=== PATIENT | male | born 1990 | race Two or more races ===

== ENCOUNTER 2018-01-03 16:24 | Emergency (ER) | payer MEDICAID ==
[~2018-01-03] VITALS: Ht 180.3 cm; Wt 104.3 kg
[2018-01-03] MEDS ORDERED: LORAZEPAM1 MG ORAL (16:33)
[2018-01-03] MEDS: LORazepam 1mg tab ORAL ONE ×2 (16:51→17:07)
[2018-01-03 16:52] VITALS: BP 138/98
--- NOTE | 2018-01-03 17:00 | Emergency Room Report ---
History of Present Illness General Chief Complaint: Chest Pain Source: Patient Present Illness HPI 27-year-old male presents to the emergency department complaining of intermittent chest pain with numbness in the bilateral hands and episodes of hyperventilation times one month. Patient states that he's been evaluated multiple times and has been diagnosed with anxiety. Patient states every tenderness to the ER they do blood work and EKG and always in the discharging him with diagnosis of inside E. Patient states that he recently had change in insurance so he just got assigned a primary care doctor and does not have a psychiatric appointment until the of this month. Patient states that he is prescribed lorazepam he states that he had to take 2 today. To stop his symptoms. Patient states he also takes Vistaril on occasion as well. Patient states he only has 7 left of his Ativan. Patient reports that during an episode he gets very shaky and starts breathing very fast despite his efforts to control his breathing. Denies recent trauma denies drug use denies denies familial history of thyroid disorder or cardiac problems. He denies cardiac problems himself. Denies fevers or chills. He denies pain at this time and states that his symptoms have now resolved after taking 2 of his Ativan pills. He states that he is concerned because his have been going on for a month without improvement. he is also worried that he is going to run out of his Ativan. Denies LOC, AMS, dizziness, Changes in Vision, Sensation, paresthesias, or a sudden severe headache. Allergies: Coded Allergies: No Known Allergies (Unverified , 01/03/18) Patient History Past Medical History: see triage record, psych hx - anxiety Past Surgical History: none Pertinent Family History: none Immunizations: UTD Reviewed Nursing Documentation: PMH: Agreed; PSxH: Agreed Nursing Documentation-PMH Past Medical History: No History, Except For Review of Systems All Other Systems: negative except mentioned in HPI Physical Exam Vital Signs Date Time Temp Pulse Resp B/P (MAP) Pulse Ox O2 Delivery O2 Flow Rate FiO2 01/03/18 16:28 98.3 97 23 138/98 94 Room Air 98.2 Sp02 EP Interpretation: reviewed, normal General Appearance: no apparent distress, alert, GCS 15, non-toxic Head: normocephalic, atraumatic Eyes: bilateral eye normal inspection, bilateral eye PERRL ENT: hearing grossly normal, normal voice Neck: full range of motion, thyroid normal Respiratory: chest non-tender, lungs clear, normal breath sounds, no rhonchi, no respiratory distress, no accessory muscle use, no wheezing, speaking full sentences Cardiovascular #1: regular rate, rhythm, no edema, normal capillary refill Cardiovascular #2: 2+ radial (R), 2+ radial (L) Gastrointestinal: non tender, soft Musculoskeletal: back normal, gait/station normal, normal range of motion, non- tender Neurologic: alert, oriented x3, responsive, motor strength/tone normal, sensory intact, normal gait, speech normal, grossly normal Psychiatric: judgement/insight normal Skin: normal color, no rash, warm/dry, well hydrated Medical Decision Making PA Attestation Dr. da silva is my supervising Physician whom patient management has been discussed with. Diagnostic Impression: Primary Impression: Anxious reaction ER Course 27-year-old male presents to the emergency department complaining of intermittent chest pain with numbness in the bilateral hands and episodes of hyperventilation times one month. Patient states that he's been evaluated multiple times and has been diagnosed with anxiety. Patient states every tenderness to the ER they do blood work and EKG and always in the discharging him with diagnosis of inside E. Patient states that he recently had change in insurance so he just got assigned a primary care doctor and does not have a psychiatric appointment until the of this month. Patient states that he is prescribed lorazepam he states that he had to take 2 today. To stop his symptoms. Patient states he also takes Vistaril on occasion as well. Patient states he only has 7 left of his Ativan. Patient reports that during an episode he gets very shaky and starts breathing very fast despite his efforts to control his breathing. Denies recent trauma denies drug use denies denies familial history of thyroid disorder or cardiac problems. He denies cardiac problems himself. Denies fevers or chills. He denies pain at this time and states that his symptoms have now resolved after taking 2 of his Ativan pills. He states that he is concerned because his have been going on for a month without improvement. he is also worried that he is going to run out of his Ativan. Denies LOC, AMS, dizziness, Changes in Vision, Sensation, paresthesias, or a sudden severe headache. Ddx considered but are not limited to anxiety, [place], PE, asthma, thyroid storm, hyperthyroid, EPS ---6 month retrospective review of [employer] : Multiple prescriptions for Ativan over the course of the last 3 months that are of small quantity and are prescribed by various different doctors. Vital signs: are WNL, pt. is afebrile H&PE are most consistent with anxiety attack ORDERS: EKG NSR:79 BPM no acute changes ED INTERVENTIONS: -none at this time. pt. is asymptomatic. Discussed with this patient that he needs to follow-up with [facility] urgent care if he feels that he is not going to be seen by his doctor soon enough. I also discussed with this patient that it is not safe to be prescribe controlled substances by different providers and continuously visit the ER he needs to stop was himself with a primary care provider who can safely prescribe these medications and monitor his improvement. I also discussed with this patient that he could be having symptoms of his thyroid and I encouraged him to bring this up with his primary care doctor at his first appointment. DISCHARGE: At this time pt. is stable for d/c to home. Will provide printed patient care instructions, and any necessary prescriptions. Care plan and follow up instructions have been discussed with the patient prior to discharge. EKG Diagnostic Results EP Interpretation: Dr. Tucker Rate: normal - 79 Rhythm: NSR ST Segments: no acute changes ASA given to the pt in ED: No PA Scribe Text This Interpretation was scribed by YOHANNES Villegas. Last Vital Signs Date Time Temp Pulse Resp B/P (MAP) Pulse Ox O2 Delivery O2 Flow Rate FiO2 01/03/18 16:28 98.3 97 23 138/98 94 Room Air 98.2 Disposition: HOME, SELF-CARE Condition: Stable Scripts Buspirone Hcl* (BUSPAR*) 10 Mg Tablet 10 MG ORAL THREE TIMES A DAY, #9 TAB 0 Refills Prov: Beulah Villegas 01/03/18 Patient Instructions: Generalized Anxiety Disorder, Thyroid-Stimulating Hormone Test Additional Instructions: Patient is to follow-up directly after ED discharge at [facility] urgent care Take previously prescribed medications as directed. Follow up with a Primary Care Provider in 3-5 days, even if your symptoms have resolved. --Please review list of primary care clinics, if you do not already have a primary care provider Return sooner to ED if new symptoms occur, or current symptoms become worse. Do not drink alcohol, drive, or operate heavy machinery while taking Buspar as this may cause drowsiness. - Please note that this Emergency Department Report was dictated using [employer] technology software, occasionally this can lead to erroneous entry secondary to interpretation by the dictation equipment. Beulah Villegas January 03, 2018 17:00
[2018-01-03] MEDS ORDERED: BUSPAR10 MG ORAL (17:55)
[2018-01-03 18:01] VITALS: BP 138/98
--- NOTE | 2018-01-04 18:52 | Cardiology Report ---
APPROVED REPORT EKG Measurement Heart [id number] Normal sinus rhythm Inferior infarct, age undetermined Abnormal ECG
== END 2018-01-03 18:01 | disposition home or self-care (01) ==
LOC: EMR 17:01
DX: F41.1 Generalized anxiety disorder (principal); R07.9 Chest pain, unspecified; R20.0 Anesthesia of skin
CPT/HCPCS: 93005; 99283

== ENCOUNTER 2018-01-06 20:30 | Emergency (ER) | payer MEDICAID ==
[~2018-01-06] VITALS: Ht 180.3 cm; Wt 104.3 kg
[~2018-01-06 20:30] MED LIST: BUSPAR10 MG ORAL; LORAZEPAM1 MG ORAL
[2018-01-06 20:47] VITALS: BP 134/89
[2018-01-06] MEDS ORDERED: LORazepam 0.5mg tab ORAL ONE (21:00)
[2018-01-06 21:13] VITALS: BP 142/99
--- NOTE | 2018-01-06 21:51 | Emergency Room Report ---
History of Present Illness General Chief Complaint: Chest Pain Source: Patient Present Illness HPI 27-year-old male with a history of anxiety Recently started on Paxil and Atarax 4 days ago Reports he stopped taking Ativan which she's been taking largely for the past year About 4 days ago, now has symptoms Consistent with a panic attack that he self-reports as a panic attack He reports left-sided nonradiating pressure type pain Moderate and intermittent, sometimes with shortness of breath, currently not short of breath Denies leg pain, leg swelling, syncope, hemoptysis, recent travel, surgeries, slurred speech, weakness, fever, blurred vision Does report a sensation of restlessness, and reports his symptoms keep recurring He has been seen in multiple emergency departments, has had chest x-rays and lab work, and was recently started on the Paxil and Atarax for severe anxiety by his primary care doctor, and has also been referred to a psychiatrist Allergies: Coded Allergies: No Known Allergies (Unverified , 01/03/18) Patient History Past Medical History: see triage record Reviewed Nursing Documentation: PMH: Agreed; PSxH: Agreed Review of Systems All Other Systems: negative except mentioned in HPI Physical Exam Vital Signs Date Time Temp Pulse Resp B/P (MAP) Pulse Ox O2 Delivery O2 Flow Rate FiO2 01/06/18 20:32 98.2 116 18 134/89 98 Room Air 98.2 Sp02 EP Interpretation: reviewed, normal General Appearance: no apparent distress, alert, non-toxic Head: normocephalic Eyes: bilateral eye normal inspection, bilateral eye PERRL, bilateral eye EOMI ENT: normal ENT inspection, hearing grossly normal, normal pharynx, no angioedema, normal voice, moist mucus membranes Neck: normal inspection, full range of motion, supple, supple/symm/no masses Respiratory: chest non-tender, lungs clear, normal breath sounds, chest symmetrical, palpation of chest normal Cardiovascular #1: normal peripheral pulses, regular rate, rhythm Cardiovascular #2: 2+ radial (R), 2+ radial (L), 2+ dorsalis pedis (R), 2+ dorsalis pedis (L) Gastrointestinal: normal inspection, non tender, soft, no mass, no guarding, no rebound Rectal: deferred Genitourinary: normal inspection, no CVA tenderness Musculoskeletal: back normal, gait/station normal, normal range of motion, non- tender, no calf tenderness, Jorge's Sign negative Neurologic: alert, responsive, mental health nurse practitioner III-XII nml as tested, motor strength/tone normal, sensory intact, speech normal Psychiatric: judgement/insight normal, memory normal, mood/affect normal, no suicidal/homicidal ideation Skin: normal color, no rash, warm/dry, normal turgor Lymphatic: no adenopathy Medical Decision Making Diagnostic Impression: Primary Impression: Anxiety ER Course Patient with unremarkable evaluation, does have a single Q wave in lead 3, but do not suspect anything serious He has had normal chest x-rays, multiple evaluations in the past symptoms are extremely consistent with anxiety, I do not suspect aortic dissection or PE nor ACS His heart rate came down without any interventions, he may be having slight withdrawal symptoms from not having Ativan for 4 days, but I do not suspect he will go into severe withdrawal state He understands and actually refused Ativan, and will continue his Paxil, Atarax and follow-up with his primary doctor EKG Diagnostic Results EKG Time: 21:21 EP Interpretation: no st-t changes, no twi Rate: normal Rhythm: NSR ST Segments: no acute changes ASA given to the pt in ED: No Rhythm Strip Diag. Results Rhythm Strip Time: 20:44 Rate: 77 Rhythm: NSR Reevaluation Time: 21:49 Last Vital Signs Date Time Temp Pulse Resp B/P (MAP) Pulse Ox O2 Delivery O2 Flow Rate FiO2 01/06/18 21:13 98.0 87 17 142/99 98 Room Air 98.0 Status: improved Condition: Stable JENNA GUTIERREZ M.D January 06, 2018 21:51
[2018-01-06 22:07] VITALS: BP 140/90
[2018-01-06 22:09] VITALS: BP 140/90
--- NOTE | 2018-01-08 12:44 | Cardiology Report ---
APPROVED REPORT EKG Measurement Heart [id number] [id number] Normal sinus rhythm Inferior infarct, age undetermined Abnormal ECG
== END 2018-01-06 22:09 | disposition home or self-care (01) ==
LOC: EMR 21:04
DX: F41.9 Anxiety disorder, unspecified (principal); R07.89 Other chest pain
CPT/HCPCS: 93005; 99283

== ENCOUNTER 2018-01-07 11:14 | Emergency (ER) | payer MEDICAID ==
[~2018-01-07] VITALS: Ht 180.3 cm; Wt 104.3 kg
--- NOTE | 2018-01-07 12:13 | Emergency Room Report ---
History of Present Illness General Chief Complaint: General Complaint Source: Patient Present Illness HPI 27-year-old male patient presents ER complaining of anxiousness. Patient was previously seen in this ER multiple times including yesterday. Patient reports symptoms have worsened since that time. complains of headache. Denies vomiting or vision changes. Denies vertigo. He denies suicidal or homicidal ideations. Reports "voices" as, states he feels very anxious and is not able to relax. Denies drinking alcohol, smoking or drugs. denies fever, chest pain, shortness of breath. reports was previously seen by accident this a few days ago and is currently being treated with Paxil and hydroxyzine, does not believe medications working at this time. denies history of injury. Allergies: Coded Allergies: No Known Allergies (Unverified , 01/03/18) Patient History Past Medical History: see triage record Reviewed Nursing Documentation: PMH: Agreed; PSxH: Agreed Nursing Documentation-PMH Past Medical History: No History, Except For History Of Psychiatric Problem: Yes - Anxiety Review of Systems All Other Systems: negative except mentioned in HPI Physical Exam Vital Signs Date Time Temp Pulse Resp B/P (MAP) Pulse Ox O2 Delivery O2 Flow Rate FiO2 01/07/18 11:20 97.6 101 18 137/97 95 Room Air 97.5 Sp02 EP Interpretation: reviewed, normal General Appearance: well appearing, no apparent distress, alert, GCS 15, non- toxic Head: normocephalic, atraumatic, other Eyes: bilateral eye normal inspection, bilateral eye PERRL ENT: hearing grossly normal, normal pharynx, no angioedema, normal voice, uvula midline, moist mucus membranes Neck: full range of motion Respiratory: lungs clear, normal breath sounds, no rhonchi, no respiratory distress, no accessory muscle use, no wheezing, speaking full sentences Cardiovascular #1: regular rate, rhythm, no edema Gastrointestinal: non tender, soft, no mass, non-distended, no guarding, no rebound Musculoskeletal: back normal, digits/nails normal, gait/station normal, normal range of motion, non-tender Neurologic: alert, oriented x3, responsive, learning program manager III-XII nml as tested, motor strength/tone normal, sensory intact, cerebellar normal, normal gait, speech normal Psychiatric: anxious Skin: no rash Medical Decision Making PA Attestation Abhinav Kline PA-C Diagnostic Impression: Primary Impression: Anxiety Additional Impression: Headache ER Course Pt. presents to the ED c/o HICKMAN and anxiety. Ddx considered but are not limited to anxiety, depression, drug use, alcohol use , behavioral disorder. patient was seen here yesterday, do not believe patient need needs labs. Due to new-onset headache, will order imaging to rule out underlying pathology.. Vital signs: are WNL, pt. is afebrile Ordered pain medication, Ativan and imaging. ER COURSE: CT head negative for acute disease, discussed results with the patient, headache likely related to anxiety. Inform patient needs mental health evaluation and outpatient follow-up. Patient is not having on-site psychiatric services here, follow-up with primary care provider, psychiatrist, or psychiatric facility. patient reports understanding and okay for discharge, will follow up outpatient with psychiatric services. Follow-up with primary care provider to discuss mental health referral if needed. Follow up with the primary care provider for further treatment and management. Inform patient that symptoms likely related to anxiety, continue taking medication. Taking Tylenol for headache symptoms, take recommended dose. Does not need Rx at this time. I do not believe the patient is a danger to himself or others at this time, denies suicidal or homicidal ideation. Patient okay for discharge home. Patient is being seen in ER with his , father and child, has good support system with him, okay for outpatient follow-up and discharge. DISCHARGE: At this time pt is stable for d/c to home. Patient is resting comfortably, in no acute distress, nontoxic appearing, talking without difficulty. Patient to take medications as instructed Will provide with patient care instructions and any necessary prescriptions. Care plan and follow-up instructions provided. Patient instructed to follow-up with primary care provider in 3 - 5 days. Patient questions asked and answered. Patient reports understanding and agreement to treatment plan. ER precautions given. Patient instructed to return to ER immediately for any new or worsening of symptoms including but not limited to increasing SOB, persistent fever. - Please note that this Emergency Department Report was dictated using [employer] ball machine mechanic technology software, occasionally this can lead to erroneous entry secondary to interpretation by the dictation equipment. CT/MRI/US Diagnostic Results CT/MRI/US Diagnostic Results : Imaging Test Ordered: CT head Impression Normal CT scan of the head without contrast material. Minimal sinus disease incidentally noted Last Vital Signs Date Time Temp Pulse Resp B/P (MAP) Pulse Ox O2 Delivery O2 Flow Rate FiO2 01/07/18 11:20 97.6 101 18 137/97 95 Room Air 97.5 Disposition: HOME, SELF-CARE Condition: Stable Patient Instructions: General Headache Without Cause, [id number], Generalized Anxiety Disorder Additional Instructions: Followup with primary care provider in 1-2 days, discuss referral to psychiatry. Followup with mental health professional for further diagnosis and treatment. Take Tylenol OTC for pain and headache symptoms. Patient questions asked and answered. ER precautions given, patient instructed to return to ER immediately for any new or worsening of symptoms. Houston Kline January 07, 2018 12:13
[2018-01-07] MEDS ORDERED: Acetaminophen 500mg (ES) tab ORAL ONE (12:15)
[2018-01-07] MEDS ORDERED: LORazepam 1mg tab ORAL ONE (12:15)
--- NOTE | 2018-01-07 12:54 | Diagnostic Imaging Report ---
Indication: Reason For Exam: H/A Technique: Continuous helical CT scanning of the head was performed without intravenous contrast material. Axial and coronal 5 mm sections were generated. Radiation dose was minimized using automated exposure control Dose: Total Dose Length Product - DLP 1445.[address] Dose Index - CTDIvol(s) 70.38 mGy. Comparison: none Findings: The ventricular system is normal in size and configuration. There is no shift of midline structures. No abnormal extra-axial fluid collections are noted. There is no evidence of intracerebral bleeding. No other abnormal high or low density areas are noted within the brain. There is minimal ethmoid sinus mucosal thickening. The mastoids are clear. The calvarium is intact. The dacosta-white differentiation is normal. The orbits are unremarkable Impression: Normal CT scan of the head without contrast material. Minimal sinus disease incidentally noted The CT scanner at [facility] is accredited by the [employer] and the scans are performed using protocols designed to limit radiation exposure to as low as reasonably achievable to attain images of sufficient resolution adequate for diagnostic evaluation.
[2018-01-07] MEDS ORDERED: Lidocaine 1% 10mg/ml/EPI 0.01mg/ml 50ml INJ ONE (13:43)
[2018-01-07] MEDS ORDERED: Lidocaine 1% Plain 30 ml INJ ONE (13:44)
[2018-01-07 14:08] VITALS: BP 137/97
== END 2018-01-07 13:45 | disposition home or self-care (01) ==
LOC: EMR 13:34
DX: F41.9 Anxiety disorder, unspecified (principal); R51 Headache
CPT/HCPCS: 70450; 99284; J2001

== ENCOUNTER 2018-04-11 20:49 | Emergency (ER) | payer MEDICAID, OTHER ==
[~2018-04-11] VITALS: Ht 180.3 cm; Wt 108.9 kg
[2018-04-11] MEDS ORDERED: PAXIL40 MG ORAL (21:01)
[2018-04-11] MEDS ORDERED: PROTONIX40 MG ORAL (21:06)
--- NOTE | 2018-04-11 21:07 | Emergency Room Report ---
History of Present Illness General Chief Complaint: Headache Source: Patient, Medical Record Present Illness HPI Is a 27-year-old male with a history of anxiety for which she takes Paxil. He also has several prescription for Ativan in the past. Most recently last month. He presents with chief complaint of chest pain with burning sensation mid chest area. His throat. His been ongoing for 4 days. Was taking Protonix but ran out. No fever chills but no nausea no vomiting. No diaphoresis. No exertional component. Denies any other complaint. No diaphoresis. Allergies: Coded Allergies: No Known Allergies (Unverified , 01/03/18) Patient History Past Medical History: see triage record, old chart reviewed Past Surgical History: none Pertinent Family History: none Social History: Denies: smoking Immunizations: other Reviewed Nursing Documentation: PMH: Agreed; PSxH: Agreed Nursing Documentation-PMH History Of Psychiatric Problem: Yes - ANXIETY Review of Systems Eye: Denies: eye pain, blurred vision ENT: Denies: ear pain, nose congestion, throat swelling Respiratory: Denies: cough, shortness of breath Cardiovascular: Reports: chest pain; Denies: palpitations Gastrointestinal: Reports: abdominal pain; Denies: diarrhea, nausea, vomiting Musculoskeletal: Denies: back pain, joint pain Skin: Denies: rash Neurological: Denies: headache, numbness Endocrine: Denies: increased thirst, increased urine Hematologic/Lymphatic: Denies: easy bruising All Other Systems: negative except mentioned in HPI Physical Exam Vital Signs Date Time Temp Pulse Resp B/P (MAP) Pulse Ox O2 Delivery O2 Flow Rate FiO2 04/11/18 20:54 98.1 77 18 126/87 96 Room Air 98.1 vitals normal Sp02 EP Interpretation: reviewed, normal General Appearance: well appearing, no apparent distress, alert Head: normocephalic, atraumatic Eyes: bilateral eye PERRL, bilateral eye EOMI ENT: hearing grossly normal, normal pharynx Neck: full range of motion, supple, no meningismus Respiratory: chest non-tender, lungs clear, normal breath sounds Cardiovascular #1: regular rate, rhythm, no murmur Gastrointestinal: normal bowel sounds, non tender, no mass, no organomegaly, no bruit, non-distended Musculoskeletal: back normal, gait/station normal, normal range of motion Psychiatric: mood/affect normal Skin: warm/dry Medical Decision Making Diagnostic Impression: Primary Impression: Atypical chest pain ER Course Patient with atypical chest pain. Most likely reflux in nature. EKG normal. No evidence of ACS, PE, dissection to name a few. We'll discharge home with prescription for Protonix. EKG Diagnostic Results Rate: normal Rhythm: NSR ST Segments: no acute changes ASA given to the pt in ED: No Rhythm Strip Diag. Results Rhythm Strip Time: 21:06 EP Interpretation: yes Rate: 80 Rhythm: NSR, no PVC's, no ectopy Last Vital Signs Date Time Temp Pulse Resp B/P (MAP) Pulse Ox O2 Delivery O2 Flow Rate FiO2 04/11/18 20:54 98.1 77 18 126/87 96 Room Air 98.1 Status: unchanged Disposition: HOME, SELF-CARE Condition: Stable Scripts Pantoprazole* (PROTONIX*) 40 Mg Tablet. 40 MG ORAL DAILY, #30 TAB Prov: NARDA CHOWDARY M.D. 04/11/18 Additional Instructions: Continue with your Paxil. Follow-up with your doctor in a week for recheck. Return if symptom worsen. NARDA CHOWDARY M.D. Apr 11, 2018 21:07
[2018-04-11 21:12] VITALS: BP 124/80
[2018-04-11 21:16] VITALS: BP 122/76
[2018-04-11 21:17] VITALS: BP 124/80
--- NOTE | 2018-04-19 18:48 | Cardiology Report ---
APPROVED REPORT EKG Measurement Heart [id number] 130P15 [id number] Normal sinus rhythm Cannot rule out Inferior infarct, age undetermined Abnormal ECG
== END 2018-04-11 21:17 | disposition home or self-care (01) ==
LOC: EMR 21:00
DX: R07.89 Other chest pain (principal); F41.9 Anxiety disorder, unspecified
CPT/HCPCS: 93005; 99283

== ENCOUNTER 2018-06-20 12:55 | Emergency (ER) | payer OTHER ==
[~2018-06-20] VITALS: Ht 180.3 cm; Wt 113.4 kg
[~2018-06-20 12:55] MED LIST changes: +PAXIL40 MG ORAL; +PROTONIX40 MG ORAL
--- NOTE | 2018-06-20 13:17 | Emergency Room Report ---
History of Present Illness General Chief Complaint: Nausea Source: Patient Present Illness HPI patient is a 27-year-old male with history of anxiety currently controlled with Paxil daily, here complaining of 3 days of continuous epigastric pain and multiple bouts of nonbloody vomit. Denies diarrhea, constipation, complains of chills but no fever. Patient has been able to take fluids with no problem unable to ingest solid food. Patient also complains of acid reflux after eating and burning sensation postprandial in her epigastric region. Denies recent travel or antibiotic use. Denies chest pain, SOB, dizziness, headache, and all other associated symptoms. Patient went to starting to smoke cannabis in the past 2 weeks. Patient has been smoking cannabis on daily basis no alcohol ingestion no other recreational drugs Allergies: Coded Allergies: No Known Allergies (Unverified , 01/03/18) Patient History Past Medical History: see triage record Past Surgical History: none Reviewed Nursing Documentation: PMH: Agreed; PSxH: Agreed Nursing Documentation-PMH Past Medical History: No History, Except For History Of Psychiatric Problem: Yes Review of Systems All Other Systems: negative except mentioned in HPI Physical Exam Vital Signs Date Time Temp Pulse Resp B/P (MAP) Pulse Ox O2 Delivery O2 Flow Rate FiO2 06/20/18 13:00 97.9 75 20 149/101 97 Room Air Sp02 EP Interpretation: reviewed, normal General Appearance: normal inspection, well appearing, no apparent distress, alert, GCS 15, obese Head: normocephalic Eyes: bilateral eye normal inspection, bilateral eye PERRL ENT: normal ENT inspection, hearing grossly normal, normal pharynx Neck: normal inspection, full range of motion, supple, thyroid normal Respiratory: normal inspection, chest non-tender, lungs clear, no rhonchi, no wheezing Cardiovascular #1: normal inspection, regular rate, rhythm, no edema, no gallop , no murmur Gastrointestinal: normal inspection, soft, no mass, tenderness - epigastric, other - Negative Batres's, McBurney's Rectal: deferred Genitourinary: deferred Musculoskeletal: normal inspection, back normal Neurologic: normal inspection, alert, primer boxer III-XII nml as tested Psychiatric: normal inspection, judgement/insight normal, memory normal, no suicidal/homicidal ideation Skin: normal inspection, normal color, no rash, warm/dry, palpation normal, well hydrated, normal turgor Lymphatic: normal inspection, no adenopathy Medical Decision Making PA Attestation on the diagnosis and treatment plans were reviewed and discussed with my supervising physician Dr. Garcia Diagnostic Impression: Primary Impression: Acute gastroenteritis Additional Impression: GERD (gastroesophageal reflux disease) ER Course patient is a 27-year-old male with history of anxiety currently controlled with Paxil daily, here complaining of 3 days of continuous epigastric pain and multiple bouts of nonbloody vomit. Denies diarrhea, constipation, complains of chills but no fever. Patient has been able to take fluids with no problem unable to ingest solid food. Patient also complains of acid reflux after eating and burning sensation postprandial in her epigastric region. Denies recent travel or antibiotic use. Denies chest pain, SOB, dizziness, headache, and all other associated symptoms. Patient went to starting to smoke cannabis in the past 2 weeks. Patient has been smoking cannabis on daily basis no alcohol ingestion no other recreational drugs Ddx considered but are not limited to Viral gastroenteritis, Hpylori infection, GERD Vital signs: are WNL, pt. is afebrile H&PE are most consistent with viral gastroenteritis and GERD ORDERS: Zofran 4 mg ODT, omeprazole 20 mg, Motrin 600 ED INTERVENTIONS: None required at this time. DISCHARGE: At this time pt. is stable for d/c to home. Will provide printed patient care instructions, and any necessary prescriptions. Care plan and follow up instructions have been discussed with the patient prior to discharge. patient is advised on BRAT diet and increase intake of electrolyte water also follow up with primary care physician for possible H. pylori testing patient to follow-up with his primary care physician regarding his anxiety is blood pressure is elevated secondary to his anxiety no other associated symptoms limited to hypertension Last Vital Signs Date Time Temp Pulse Resp B/P (MAP) Pulse Ox O2 Delivery O2 Flow Rate FiO2 06/20/18 13:00 97.9 75 20 149/101 97 Room Air Disposition: HOME, SELF-CARE Condition: Stable Scripts Ibuprofen* (MOTRIN*) 600 Mg Tablet 600 MG ORAL BID, #30 TAB 0 Refills Prov: Preston Moody 06/20/18 Omeprazole (OMEPRAZOLE) 20 Mg Capsule. 20 MG ORAL BID, #30 CAP Prov: Preston Moody 06/20/18 Ondansetron Odt* (ZOFRAN ODT*) 8 Mg Tab.rapdis 4 MG ORAL Q8HR PRN for Nausea & Vomiting for 10 Days, #30 TAB Prov: Preston Moody 06/20/18 Patient Instructions: Nausea and Vomiting, Adult, Viral Gastroenteritis, Adult , [id number] Preston Moody Jun 20, 2018 13:17
[2018-06-20] MEDS ORDERED: ZOFRAN ODT8 MG ORAL (13:18)
[2018-06-20] MEDS ORDERED: OMEPRAZOLE20 M2 ORAL (13:19)
[2018-06-20] MEDS ORDERED: IBUPROFEN600 MG ORAL (13:19)
[2018-06-20 13:21] VITALS: BP 143/99
[2018-06-20 13:25] VITALS: BP 143/99
== END 2018-06-20 13:25 | disposition home or self-care (01) ==
LOC: EMR 13:25
DX: K52.9 Noninfective gastroenteritis and colitis, unspecified (principal); K21.9 Gastro-esophageal reflux disease without esophagitis; F41.9 Anxiety disorder, unspecified
CPT/HCPCS: 99283

== ENCOUNTER 2018-06-23 09:46 | Emergency (ER) | payer OTHER ==
[~2018-06-23] VITALS: Ht 180.3 cm; Wt 137.4 kg
[~2018-06-23 09:46] MED LIST changes: +IBUPROFEN600 MG ORAL; +OMEPRAZOLE20 M2 ORAL; +ZOFRAN ODT8 MG ORAL
[2018-06-23 09:52] VITALS: BP 155/110
[2018-06-23] MEDS ORDERED: Naproxen 375mg tab ORAL STA (10:16)
--- NOTE | 2018-06-23 10:34 | Emergency Room Report ---
History of Present Illness General Chief Complaint: Headache Source: EMS Present Illness HPI 27M with history of anxiety, c/o constant frontal headache. He was here recently for anxiety and is seeing a psychiatrist and antidepressants. In terms of headache: gradual, constant, frontal. No posterior pain, not sudden, not "worst elizalde of life", no trauma, no fever, no ALOC, no n/v. Allergies: Coded Allergies: PROCHLORPERAZINE (Unverified Allergy, Unknown, 06/23/18) Nursing Documentation-[facility] Past Medical History: No History, Except For History Of Psychiatric Problem: No - anxiety Review of Systems Constitutional: Reports: no symptoms Eye: Reports: no symptoms ENT: Reports: no symptoms Respiratory: Reports: no symptoms Cardiovascular: Reports: no symptoms Gastrointestinal: Reports: no symptoms Genitourinary: Reports: no symptoms Musculoskeletal: Reports: no symptoms Skin: Reports: no symptoms Psychiatric: Reports: anxiety, depressed feelings Neurological: Reports: headache Endocrine: Reports: no symptoms Hematologic/Lymphatic: Reports: no symptoms Allergic: Reports: no symptoms All Other Systems: negative except mentioned in HPI Physical Exam Vital Signs Date Time Temp Pulse Resp B/P (MAP) Pulse Ox O2 Delivery O2 Flow Rate FiO2 06/23/18 09:42 97.5 90 18 154/103 98 Room Air Sp02 EP Interpretation: reviewed, normal General Appearance: normal inspection, well appearing, no apparent distress, alert, GCS 15, non-toxic, obese Head: normocephalic, atraumatic Eyes: bilateral eye normal inspection, bilateral eye PERRL, bilateral eye EOMI ENT: normal ENT inspection, hearing grossly normal, normal pharynx, no angioedema, normal voice, moist mucus membranes Neck: normal inspection, full range of motion, supple, no meningismus, no bony tend Respiratory: normal inspection, lungs clear, normal breath sounds, no rhonchi, no respiratory distress, no retraction, no accessory muscle use, no wheezing Cardiovascular #1: normal inspection, regular rate, rhythm, no edema Gastrointestinal: normal inspection, normal bowel sounds, non tender, soft, no mass, non-distended Musculoskeletal: gait/station normal, normal range of motion Neurologic: normal inspection, alert, oriented x3, responsive, motor strength/ tone normal Psychiatric: normal inspection, judgement/insight normal, memory normal Suicide Risk Assessment: Suicidal Ideation: No Had intent to initiate attempt: No Pt's plan for suicide attempt: No Has means to complete attempt: No Skin: normal inspection, normal color, no rash, warm/dry Medical Decision Making Diagnostic Impression: Primary Impression: Headache Last Vital Signs Date Time Temp Pulse Resp B/P (MAP) Pulse Ox O2 Delivery O2 Flow Rate FiO2 06/23/18 09:52 97.5 18 155/110 98 Room Air 06/23/18 09:42 90 Disposition: HOME, SELF-CARE Referrals: NON PHYSICIAN (PCP) Patient Instructions: Tension Headache Rg Zimmer M.D. Jun 23, 2018 10:34
[2018-06-23 10:51] VITALS: BP 134/76
== END 2018-06-23 10:51 | disposition home or self-care (01) ==
LOC: EDBD 09:46 → EMR 10:13
DX: R51 Headache (principal); F41.9 Anxiety disorder, unspecified; Z88.8 Allergy status to other drugs, medicaments and biological substances
CPT/HCPCS: 99283

== ENCOUNTER 2018-12-05 09:47 | Emergency (ER) | payer OTHER ==
[~2018-12-05] VITALS: Ht 180.3 cm; Wt 104.3 kg
[2018-12-05] MEDS ORDERED: NORVASC5 MG ORAL (10:09)
[2018-12-05 10:21] VITALS: BP 142/98
--- NOTE | 2018-12-05 10:22 | NUR ---
ED Nurse Note: PT. AAOX4.AMBULATORY. CAME IN TO ER DUE TO CP ON THE MIDSTERNAL AREA RADIATING TO HIS NECK. PER PT. HAS BEEN DEALING WITH ENVIRONMENTAL STRESSORS SUCH HIS YOUNGER SISTER RUNNING AWAY
--- NOTE | 2018-12-05 10:31 | Emergency Room Report ---
History of Present Illness General Chief Complaint: General Complaint Source: Patient Present Illness HPI Patient is a 28-year-old male who presented after increased palpitations. He reports of increased anxiety as well as frequent racing heartbeats. Patient's apparently has had some recent stress with his family. He reports having recently had multiple episodes where he would wake up with palpitations. He denies any alcohol use. He had prior history of hypertension reports taking Norvasc. He denies any stimulant use. He denies any prior cardiac history. He denies any numbness or weakness to his extremities.Patient had intermittent episodes which lasted less than 1/2-hour. Allergies: Coded Allergies: PROCHLORPERAZINE (Unverified Allergy, Unknown, 06/23/18) Patient History Past Medical History: see triage record Reviewed Nursing Documentation: PMH: Agreed; PSxH: Agreed Nursing Documentation-PMH Past Medical History: No History, Except For Review of Systems All Other Systems: negative except mentioned in HPI Physical Exam Vital Signs Date Time Temp Pulse Resp B/P (MAP) Pulse Ox O2 Delivery O2 Flow Rate FiO2 12/05/18 10:03 98.6 95 20 138/89 98 Room Air Sp02 EP Interpretation: reviewed, normal General Appearance: normal inspection, well appearing, no apparent distress, alert, GCS 15, non-toxic Head: atraumatic ENT: normal ENT inspection, hearing grossly normal, normal voice Neck: normal inspection, full range of motion, supple, no bony tend Respiratory: normal inspection, lungs clear, normal breath sounds, no respiratory distress, no retraction, no wheezing Cardiovascular #1: regular rate, rhythm, no edema Gastrointestinal: normal inspection, normal bowel sounds, non tender, soft, no guarding, no hernia Genitourinary: no CVA tenderness Musculoskeletal: normal inspection, back normal, normal range of motion Neurologic: normal inspection, alert, oriented x3, responsive, chuck tender III-XII nml as tested, speech normal Psychiatric: normal inspection, judgement/insight normal, mood/affect normal Skin: normal inspection, normal color, no rash Medical Decision Making Diagnostic Impression: Primary Impression: Anxiety ER Course Patient presented for palpitations. Differential diagnosis include was not limited to arrhythmia, thyroid storm, sepsis, anemia, myocardial infarction, alcohol withdrawal, stimulant abuse, caffeine overdose among others. Because of complexity of patient's case laboratory testing and imaging studies were ordered. EKG interpreted by me showed normal sinus rhythm with a rate of [address] or T wave changes.Patient appears to be stable for outpatient management. Patient was advised outpatient workup with his primary care physician. He was advised to return if symptoms recur or worsen. Patient is advised to follow-up for recheck in the next few days with his doctor. Patient' s symptoms appear to be anxiety related. Labs Test 12/05/18 10:18 White Blood Count 7.7 K/UL (4.8-10.8) Red Blood Count 5.78 M/UL (4.70-6.10) Hemoglobin 18.0 G/DL (14.2-18.0) Hematocrit 52.4 % (42.0-52.0) Mean Corpuscular Volume 91 FL (80-99) Mean Corpuscular Hemoglobin 31.1 PG (27.0-31.0) Mean Corpuscular Hemoglobin Concent 34.3 G/DL (32.0-36.0) Red Cell Distribution Width 11.3 % (11.6-14.8) Platelet Count 332 K/UL (150-450) Mean Platelet Volume 7.6 FL (6.5-10.1) Neutrophils (%) (Auto) 68.4 % (45.0-75.0) Lymphocytes (%) (Auto) 22.9 % (20.0-45.0) Monocytes (%) (Auto) 4.6 % (1.0-10.0) Eosinophils (%) (Auto) 2.6 % (0.0-3.0) Basophils (%) (Auto) 1.5 % (0.0-2.0) Sodium Level 141 MMOL/L (136-145) Potassium Level 3.8 MMOL/L (3.5-5.1) Chloride Level 102 MMOL/L (98-107) Carbon Dioxide Level 29 MMOL/L (21-32) Anion Gap 10 mmol/L (5-15) Blood Urea Nitrogen 9 mg/dL (7-18) Creatinine 1.1 MG/DL (0.55-1.30) Estimat Glomerular Filtration Rate > 60 mL/min (>60) Glucose Level 90 MG/DL (74-106) Calcium Level 9.8 MG/DL (8.5-10.1) Total Bilirubin 0.7 MG/DL (0.2-1.0) Aspartate Amino Transf (AST/SGOT) 35 U/L (15-37) Alanine Aminotransferase (ALT/SGPT) 98 U/L (12-78) Alkaline Phosphatase 88 U/L (46-116) Troponin I 0.000 ng/mL (0.000-0.056) Total Protein 8.9 G/DL (6.4-8.2) Albumin 4.9 G/DL (3.4-5.0) Globulin 4.0 g/dL Albumin/Globulin Ratio 1.2 (1.0-2.7) Lipase 161 U/L (73-393) EKG Diagnostic Results Rate: normal Rhythm: NSR ST Segments: no acute changes Last Vital Signs Date Time Temp Pulse Resp B/P (MAP) Pulse Ox O2 Delivery O2 Flow Rate FiO2 12/05/18 10:21 98.6 89 16 142/98 98 Room Air Status: improved Disposition: HOME, SELF-CARE Condition: Stable Referrals: [facility],REFERRING (PCP) Loyd Dahl MD Dec 05, 2018 10:31
[2018-12-05 10:47] LABS: BASOPHILS % (AUTO) 1.5 % (0.0-2.0); EOSINOPHILS % (AUTO) 2.6 % (0.0-3.0); HEMATOCRIT 52.4 % (42.0-52.0); LYMPHOCYTES % (AUTO) 22.9 % (20.0-45.0); MEAN CORPUSCULAR VOLUME 91 FL (80-99); MONOCYTES % (AUTO) 4.6 % (1.0-10.0); NEUTROPHILS % (AUTO) 68.4 % (45.0-75.0); PLATELET COUNT 332 K/UL (150-450); RED BLOOD COUNT 5.78 M/UL (4.70-6.10); RED CELL DISTRIBUTION WIDTH 11.3 % (11.6-14.8); WHITE BLOOD COUNT 7.7 K/UL (4.8-10.8)
[2018-12-05 10:51] LABS: ANION GAP 10 mmol/L (5-15); BLOOD UREA NITROGEN 9 mg/dL (7-18); CALCIUM 9.8 MG/DL (8.5-10.1); CARBON DIOXIDE 29 MMOL/L (21-32); CHLORIDE 102 MMOL/L (98-107); CREATININE 1.1 MG/DL (0.55-1.30); POTASSIUM 3.8 MMOL/L (3.5-5.1); SODIUM 141 MMOL/L (136-145)
[2018-12-05 10:56] LABS: ALANINE AMINOTRANSFERASE 98 U/L (12-78); ALBUMIN 4.9 G/DL (3.4-5.0); ALBUMIN/GLOBULIN RATIO 1.2 (1.0-2.7); ALKALINE PHOSPHATASE 88 U/L (46-116); ASPARTATE AMINO TRANSFERASE 35 U/L (15-37); BILIRUBIN,TOTAL 0.7 MG/DL (0.2-1.0)
--- NOTE | 2018-12-05 11:12 | NUR ---
ER DISCHARGE NOTE: Patient is cleared to be discharged per ERMD, pt is aox4, on room air, with stable vital signs. pt was given dc and prescription instructions, pt was able to verbalize understanding, pt id band and iv site removed without complications. pt is able to ambulate with steady gait. pt took all belongings.
[2018-12-05 11:14] VITALS: BP 132/75
--- NOTE | 2018-12-06 19:58 | Cardiology Report ---
APPROVED REPORT EKG Measurement Heart [id number] Normal sinus rhythm Normal ECG
== END 2018-12-05 11:12 | disposition home or self-care (01) ==
LOC: EMR 10:21
DX: F41.9 Anxiety disorder, unspecified (principal); I10 Essential (primary) hypertension; Z88.8 Allergy status to other drugs, medicaments and biological substances
CPT/HCPCS: 36415; 80053; 83690; 84484; 85025; 93005; 99283

== ENCOUNTER 2018-12-30 15:45 | Emergency (ER) | payer OTHER ==
[~2018-12-30] VITALS: Ht 180.3 cm; Wt 104.3 kg
[~2018-12-30 15:45] MED LIST changes: +NORVASC5 MG ORAL
[2018-12-30] MEDS ORDERED: PANTOPRAZOLE SO40 MG ORAL (15:51)
[2018-12-30 16:24] VITALS: BP 132/75
[2018-12-30 16:27] LABS: BASOPHILS % (AUTO) 1.9 % (0.0-2.0); EOSINOPHILS % (AUTO) 1.2 % (0.0-3.0); HEMATOCRIT 47.4 % (42.0-52.0); HEMOGLOBIN 16.7 G/DL (14.2-18.0); LYMPHOCYTES % (AUTO) 22.3 % (20.0-45.0); MEAN CORPUSCULAR VOLUME 89 FL (80-99); NEUTROPHILS % (AUTO) 67.6 % (45.0-75.0); PLATELET COUNT 317 K/UL (150-450); RED BLOOD COUNT 5.34 M/UL (4.70-6.10); RED CELL DISTRIBUTION WIDTH 11.5 % (11.6-14.8)
[2018-12-30 16:30] LABS: APPEARANCE,URINE CLEAR; BILIRUBIN, URINE NEGATIVE (NEGATIVE); COLOR,URINE PALE YELLOW; GLUCOSE, URINE (UA) NEGATIVE (NEGATIVE); KETONES,URINE NEGATIVE (NEGATIVE); LEUKOCYTE ESTERASE ,URINE NEGATIVE (NEGATIVE); NITRITE,URINE NEGATIVE (NEGATIVE); PH,URINE 7 (4.5-8.0); PROTEIN,URINE NEGATIVE (NEGATIVE); UROBILINOGEN,URINE NORMAL MG/DL (0.0-1.0)
--- NOTE | 2018-12-30 16:31 | Emergency Room Report ---
History of Present Illness General Chief Complaint: General Complaint Source: Medical Record Present Illness HPI 28-year-old male with history of hiatal hernia, anxiety and hypertension currently controlled with pantoprazole and Norvasc here complaining of 1 day of chest pain and palpitation. Ports that he was changing his tire yesterday and cleaning his car denying any use of chemicals when he noticed that he was having chest pain as well as dizziness patient. And then laid down and experienced some shortness of breath however denies pain radiation to left arm or jaw. He reports that he had an endoscopy done a month ago and was diagnosed with hiatal hernia pending referral for general surgeon. Denies hemoptysis, hematemesis, nausea vomiting. Abdominal pain. Compliant with his medication. He appears in mild distress at the emergency room however blood pressure is 144/ 80. Eyes fever chills, drug use, smoking tobacco, and alcohol ingestion. His significant other mentions that he had chest trauma a week ago however denies any extensive injury to his ribs. Patient was on Paxil however he stopped abruptly 2 months ago as he was managing his anxiety with diet, and exercise. SI, HI, difficulty sleeping. Mentions that he has been more anxious in the past few days. Allergies: Coded Allergies: DIPHENHYDRAMINE (Verified Allergy, Unknown, 12/30/18) METOCLOPRAMIDE (Verified Allergy, Unknown, 12/30/18) PROCHLORPERAZINE (Unverified Allergy, Unknown, 06/23/18) Patient History Past Medical History: see triage record Past Surgical History: unable to obtain Pertinent Family History: unable to obtain Social History: Reports: smoking - marijuana Immunizations: UTD Reviewed Nursing Documentation: PMH: Agreed; PSxH: Agreed Nursing Documentation-PMH Past Medical History: No History, Except For Hx Hypertension: Yes Hx Gastrointestinal Problems: Yes - GERD Review of Systems All Other Systems: negative except mentioned in HPI Physical Exam Vital Signs Date Time Temp Pulse Resp B/P (MAP) Pulse Ox O2 Delivery O2 Flow Rate FiO2 12/30/18 15:47 98.1 108 18 95 Room Air 12/30/18 16:24 132/75 Sp02 EP Interpretation: reviewed, normal General Appearance: normal inspection, well appearing, no apparent distress, alert, GCS 15 Head: normocephalic, atraumatic Eyes: bilateral eye normal inspection, bilateral eye PERRL ENT: normal ENT inspection, hearing grossly normal, normal pharynx Neck: normal inspection, full range of motion, supple, thyroid normal Respiratory: normal inspection, chest non-tender, lungs clear, no rhonchi, no wheezing Cardiovascular #1: normal inspection, normal peripheral pulses, regular rate, rhythm, no edema, no murmur, no rub, normal capillary refill Cardiovascular #2: 2+ radial (R), 2+ radial (L) Gastrointestinal: normal inspection, normal bowel sounds, soft Genitourinary: no CVA tenderness Musculoskeletal: normal inspection, back normal, gait/station normal, normal range of motion, non-tender Neurologic: normal inspection, alert, oriented x3 Psychiatric: normal inspection, judgement/insight normal Skin: normal inspection, normal color, no rash Lymphatic: normal inspection, no adenopathy Medical Decision Making PA Attestation All my diagnosis and treatment plans were reviewed ad discussed with my supervising physician Dr. Staples Diagnostic Impression: Primary Impression: Anxiety Additional Impression: Hiatal hernia ER Course 28-year-old male with history of hiatal hernia, anxiety and hypertension currently controlled with pantoprazole and Norvasc here complaining of 1 day of chest pain and palpitation. Ports that he was changing his tire yesterday and cleaning his car denying any use of chemicals when he noticed that he was having chest pain as well as dizziness patient. And then laid down and experienced some shortness of breath however denies pain radiation to left arm or jaw. He reports that he had an endoscopy done a month ago and was diagnosed with hiatal hernia pending referral for general surgeon. Denies hemoptysis, hematemesis, nausea vomiting. Abdominal pain. Compliant with his medication. He appears in mild distress at the emergency room however blood pressure is 144/ 80. Eyes fever chills, drug use, smoking tobacco, and alcohol ingestion. His significant other mentions that he had chest trauma a week ago however denies any extensive injury to his ribs. Patient was on Paxil however he stopped abruptly 2 months ago as he was managing his anxiety with diet, and exercise. SI, HI, difficulty sleeping. Mentions that he has been more anxious in the past few days. Ddx considered but are not limited to: [place], Angina, COPD, GERD, substance abuse, anxiety, rib fx Vital signs: are WNL, pt. is afebrile H&PE are most consistent with anxiety and hiatal hernia ORDERS: EKG, Chest XR, cardiac labs(troponin, CBC, CMP, tox screen, UA, ) ribs Xray ED INTERVENTIONS: None required at this time. DISCHARGE: At this time pt. is stable for d/c to home. Will provide printed patient care instructions, and any necessary prescriptions. Care plan and follow up instructions have been discussed with the patient prior to discharge. Marijuana smoke not advised as able increase anxiety, start SSRIs with the observation of your primary care provider or call mental health hotline #4 referral to psychiatrist and psychotherapist. These need to be taken for at least 6 months. pos marijuana EKG Diagnostic Results Rate: tachycardiac - secondary to anxiety, HR normalized after EKG ST Segments: no acute changes ASA given to the pt in ED: Yes Chest X-Ray Diagnostic Results Chest X-Ray Diagnostic Results : Chest X-Ray Ordered: Yes # of Views/Limited/Complete: 1 View Indication: Shortness of Breath EP Interpretation: Yes PA Xray: Interpretation reviewed, by supervising MD, and agrees with findings. Interpretation: no pneumothorax Impression: No acute disease Electronically Signed by: preston luna PA-C Other X-Ray Diagnostic Results Other X-Ray Diagnostic Results : X-Ray ordered: ribs # of Views/Limited Vs Complete: 3 View Indication: Pain EP Interpretation: Yes PA Xray: Interpretation reviewed, by supervising MD, and agrees with findings. Interpretation: no dislocation, no soft tissue swelling, no fractures Impression: No acute disease Electronically Signed by: preston luna PA-C Last Vital Signs Date Time Temp Pulse Resp B/P (MAP) Pulse Ox O2 Delivery O2 Flow Rate FiO2 12/30/18 16:24 98.1 97 25 132/75 100 Room Air Disposition: HOME, SELF-CARE Condition: Stable Patient Instructions: Generalized Anxiety Disorder, Hiatal Hernia Additional Instructions: With a primary care provider for start of pain for generalized anxiety disorder , advised to seek psychotherapy. Always your primary care provider for referral to general surgery for your hiatal hernia. Continue taking her pantoprazole Preston Moody December 30, 2018 16:31
--- NOTE | 2018-12-30 16:31 | NUR ---
ED Nurse Note: pt walked in c/o cp weakness and dizzy ermd eval done sl established pt on monitor vss blood and urine sent to lab . pt states he has anxiety hx and smokes thc . pt down to imaging.
[2018-12-30 16:37] LABS: ANION GAP 6 mmol/L (5-15); BLOOD UREA NITROGEN 9 mg/dL (7-18); CALCIUM 9.5 MG/DL (8.5-10.1); CARBON DIOXIDE 31 MMOL/L (21-32); CHLORIDE 103 MMOL/L (98-107); CREATININE 1.2 MG/DL (0.55-1.30); POTASSIUM 3.5 MMOL/L (3.5-5.1); SODIUM 140 MMOL/L (136-145)
--- NOTE | 2018-12-30 16:43 | NUR ---
ED Nurse Note: pt back from imaging.
[2018-12-30 16:56] LABS: ALANINE AMINOTRANSFERASE 76 U/L (12-78); ALBUMIN 4.6 G/DL (3.4-5.0); ALBUMIN/GLOBULIN RATIO 1.3 (1.0-2.7); ALKALINE PHOSPHATASE 69 U/L (46-116); ASPARTATE AMINO TRANSFERASE 32 U/L (15-37); BILIRUBIN,TOTAL 0.6 MG/DL (0.2-1.0); CKMB 0.5 NG/ML (0.0-3.6); CREATINE KINASE 100 U/L (26-308)
[2018-12-30 17:35] VITALS: BP 138/75
--- NOTE | 2018-12-30 18:53 | NUR ---
ED Nurse Note: westley welch done pt given aci verbalized understanding ambulated out of er with strong steady gait.
--- NOTE | 2018-12-31 12:47 | Diagnostic Imaging Report ---
Indication: Trauma bilateral rib pain. Comparison: None Findings: 4 views of the chest wall obtained bilaterally for evaluation of the ribs. Bony mineralization appears normal. There is no acute fracture identified. There is no soft tissue swelling demonstrated. The lungs are essentially clear. The costophrenic angle are sharp. Other osseous structures visualized are unremarkable. Impression: Negative bilateral rib series
--- NOTE | 2018-12-31 12:48 | Diagnostic Imaging Report ---
Indication: Dyspnea Comparison: None A single view chest radiograph was obtained. Findings: Some prominence of the interstitium noted. Pulmonary vascularity is likely normal. Heart size is normal. Lung volumes are low. Bones are unremarkable. IMPRESSION: Prominence of the pulmonary interstitium nonspecific.
--- NOTE | 2018-12-31 14:24 | Cardiology Report ---
APPROVED REPORT EKG Measurement Heart [id number] [place] [id number] Sinus tachycardia Otherwise normal ECG
== END 2018-12-30 17:40 | disposition home or self-care (01) ==
LOC: EMR 16:25
DX: F41.9 Anxiety disorder, unspecified (principal); K44.9 Diaphragmatic hernia without obstruction or gangrene; I10 Essential (primary) hypertension; K21.9 Gastro-esophageal reflux disease without esophagitis; Z79.899 Other long term (current) drug therapy; Z88.8 Allergy status to other drugs, medicaments and biological substances
CPT/HCPCS: 36415; 71045; 71110; 80053; 80307; 81003; 82550; 82553; 84443; 84484; 85025; 93005; 99284

== ENCOUNTER 2019-03-03 19:38 | Emergency (ER) | payer OTHER ==
[~2019-03-03] VITALS: Ht 180.3 cm; Wt 104.3 kg
[~2019-03-03 19:38] MED LIST changes: +PANTOPRAZOLE SO40 MG ORAL
[2019-03-03 19:55] VITALS: BP 134/82
--- NOTE | 2019-03-03 19:55 | NUR ---
ED Nurse Note: Pt ambulated to ED from home c/o flu-like symptoms x4days, generalized weakness, fatigue and body ache as well as 10/10 headache. Pt is A&Ox4, VSS except HR 120
[2019-03-03] MEDS ORDERED: Ketorolac 60mg Inj IM ONE (20:30)
[2019-03-03 20:47] LABS: HEMATOCRIT 48.6 % (42.0-52.0); HEMOGLOBIN 16.9 G/DL (14.2-18.0); MEAN CORPUSCULAR VOLUME 91 FL (80-99); PLATELET COUNT 361 K/UL (150-450); RED BLOOD COUNT 5.36 M/UL (4.70-6.10); RED CELL DISTRIBUTION WIDTH 10.9 % (11.6-14.8); WHITE BLOOD COUNT 11.3 K/UL (4.8-10.8)
[2019-03-03 20:53] LABS: ANION GAP 9 mmol/L (5-15); BLOOD UREA NITROGEN 12 mg/dL (7-18); CALCIUM 9.6 MG/DL (8.5-10.1); CARBON DIOXIDE 26 MMOL/L (21-32); CHLORIDE 105 MMOL/L (98-107); CREATININE 1.5 MG/DL (0.55-1.30); POTASSIUM 4.2 MMOL/L (3.5-5.1); SODIUM 140 MMOL/L (136-145)
[2019-03-03 20:58] LABS: ALANINE AMINOTRANSFERASE 35 U/L (12-78); ALBUMIN 4.5 G/DL (3.4-5.0); ALBUMIN/GLOBULIN RATIO 1.2 (1.0-2.7); ALKALINE PHOSPHATASE 79 U/L (46-116); ASPARTATE AMINO TRANSFERASE 21 U/L (15-37); BILIRUBIN,TOTAL 0.4 MG/DL (0.2-1.0); CREATINE KINASE 146 U/L (26-308)
--- NOTE | 2019-03-03 21:05 | Emergency Room Report ---
History of Present Illness General Chief Complaint: Flu Like Symptoms Source: Patient Present Illness HPI This patient states that for the past 2 days he has had diffuse joint pain. He states he did have a sore throat prior to the onset of the symptoms. However, he states that the sore throat has resolved. He denies cough or congestion. He denies fever chills. He denies that his muscles ache. He states it feels like he has pain in all of his joints. He does use marijuana and occasional alcohol use. He denies any other drugs or tobacco use. He denies weakness. He denies tingling or numbness. He denies chest pain or shortness of breath. He denies headache or neck pain. He has no other complaints. Allergies: Coded Allergies: DIPHENHYDRAMINE (Verified Allergy, Unknown, 12/30/18) METOCLOPRAMIDE (Verified Allergy, Unknown, 12/30/18) PROCHLORPERAZINE (Unverified Allergy, Unknown, 06/23/18) Patient History Past Medical History: see triage record, HTN, GERD, other - Anxiety Social History: Reports: alcohol use, drug use - THC; Denies: smoking Reviewed Nursing Documentation: PMH: Agreed; PSxH: Agreed Nursing Documentation-PMH Hx Hypertension: Yes Hx Gastrointestinal Problems: Yes - GERD Review of Systems All Other Systems: negative except mentioned in HPI Physical Exam Vital Signs Date Time Temp Pulse Resp B/P (MAP) Pulse Ox O2 Delivery O2 Flow Rate FiO2 03/03/19 19:51 98.1 119 18 134/82 (99) 96 Room Air Sp02 EP Interpretation: reviewed, normal General Appearance: no apparent distress, alert, GCS 15, non-toxic Head: normocephalic, atraumatic Eyes: bilateral eye normal inspection, bilateral eye PERRL ENT: hearing grossly normal, normal pharynx, no angioedema, normal voice Neck: full range of motion, supple/symm/no masses Respiratory: chest non-tender, lungs clear, normal breath sounds, no respiratory distress, no retraction, no accessory muscle use, speaking full sentences Cardiovascular #1: regular rate, rhythm, no edema Gastrointestinal: normal bowel sounds, non tender, soft, non-distended, no guarding, no rebound Rectal: deferred Musculoskeletal: back normal, gait/station normal, normal range of motion, other - Pain w/ ROM of all joints. No joint swelling, warmth or erythema. Neurologic: alert, oriented x3, responsive, motor strength/tone normal, sensory intact, speech normal Psychiatric: judgement/insight normal, memory normal, mood/affect normal, no suicidal/homicidal ideation Skin: no rash, normal color Medical Decision Making Diagnostic Impression: Primary Impression: Reactive arthritis ER Course This patient likely has a reactive arthritis. I am unsure of the inciting etiology. The patient is being worked up by his primary care physician and recently underwent a lab work-up by the primary care physician. There is no evidence of compartment syndrome, [place]on Quint[place], septic arthritis, or emergency medical condition at this time. The patient was given IM Toradol. I will put the patient on oral anti-inflammatory medications. Patient is inspected to his follow-up with the primary care physician. He is given close return precautions and follow-up instructions. Laboratory Tests Test 03/03/19 20:30 White Blood Count 11.3 K/UL (4.8-10.8) H Red Blood Count 5.36 M/UL (4.70-6.10) Hemoglobin 16.9 G/DL (14.2-18.0) Hematocrit 48.6 % (42.0-52.0) Mean Corpuscular Volume 91 FL (80-99) Mean Corpuscular Hemoglobin 31.6 PG (27.0-31.0) H Mean Corpuscular Hemoglobin Concent 34.8 G/DL (32.0-36.0) Red Cell Distribution Width 10.9 % (11.6-14.8) L Platelet Count 361 K/UL (150-450) Mean Platelet Volume 6.9 FL (6.5-10.1) Neutrophils (%) (Auto) % (45.0-75.0) Lymphocytes (%) (Auto) % (20.0-45.0) Monocytes (%) (Auto) % (1.0-10.0) Eosinophils (%) (Auto) % (0.0-3.0) Basophils (%) (Auto) % (0.0-2.0) Neutrophils % (Manual) Pending Lymphocytes % (Manual) Pending Platelet Estimate Pending Platelet Morphology Pending Erythrocyte Sedimentation Rate Pending Sodium Level 140 MMOL/L (136-145) Potassium Level 4.2 MMOL/L (3.5-5.1) Chloride Level 105 MMOL/L (98-107) Carbon Dioxide Level 26 MMOL/L (21-32) Anion Gap 9 mmol/L (5-15) Blood Urea Nitrogen 12 mg/dL (7-18) Creatinine 1.5 MG/DL (0.55-1.30) H Estimate Glomerular Filtration Rate 55.3 mL/min (>60) Glucose Level 120 MG/DL (74-106) H Calcium Level 9.6 MG/DL (8.5-10.1) Total Bilirubin 0.4 MG/DL (0.2-1.0) Aspartate Amino Transferase (AST) 21 U/L (15-37) Alanine Aminotransferase (ALT) 35 U/L (12-78) Alkaline Phosphatase 79 U/L (46-116) Total Creatine Kinase 146 U/L (26-308) C-Reactive Protein, Quantitative < 0.4 mg/dL (0.00-0.90) Total Protein 8.4 G/DL (6.4-8.2) H Albumin 4.5 G/DL (3.4-5.0) Globulin 3.9 g/dL Albumin/Globulin Ratio 1.2 (1.0-2.7) Last Vital Signs Date Time Temp Pulse Resp B/P (MAP) Pulse Ox O2 Delivery O2 Flow Rate FiO2 03/03/19 20:53 98.1 03/03/19 19:55 115 18 134/82 96 Room Air Status: improved Disposition: HOME, SELF-CARE Condition: Improved Babs Walsh DO Mar 03, 2019 21:05
[2019-03-03] MEDS ORDERED: IBUPROFEN800 MG ORAL (21:13)
[2019-03-03] MEDS ORDERED: ACETAMINOPHEN-1 EAC1 ORAL (21:13)
[2019-03-03 21:25] VITALS: BP 134/82
== END 2019-03-03 21:25 | disposition home or self-care (01) ==
LOC: EMR 20:23
DX: M02.30 Reiter's disease, unspecified site (principal); I10 Essential (primary) hypertension; K21.9 Gastro-esophageal reflux disease without esophagitis; F41.9 Anxiety disorder, unspecified; F12.10 Cannabis abuse, uncomplicated; Z88.8 Allergy status to other drugs, medicaments and biological substances
CPT/HCPCS: 36415; 80053; 82550; 85007; 85025; 85651; 86140; 96372; 99284

== ENCOUNTER 2019-04-10 19:44 | Emergency (ER) | payer OTHER ==
[~2019-04-10] VITALS: Ht 177.8 cm; Wt 104.3 kg
[~2019-04-10 19:44] MED LIST changes: +ACETAMINOPHEN-1 EAC1 ORAL; +IBUPROFEN800 MG ORAL
[2019-04-10] MEDS ORDERED: Lidocaine 2% Visc 15ml soln ORAL ONE (20:15)
[2019-04-10] MEDS ORDERED: Dicyclomine HCl 10mg/5ml oral soln ORAL ONE (20:15)
[2019-04-10] MEDS ORDERED: Mylanta II UD 30ml ORAL ONE (20:15)
[2019-04-10] MEDS ORDERED: RANITIDINE HCL150 MG ORAL (20:27)
[2019-04-10 20:30] VITALS: BP 145/108
--- NOTE | 2019-04-13 14:25 | Emergency Room Report ---
History of Present Illness General Chief Complaint: Pain Source: Patient Present Illness HPI 28-year-old male presents ED for evaluation. Complaining of headache and epigastric pain. States that 5 days ago he developed a migraine. Temporal bilaterally. Throbbing, 6 out of 10, nonradiating. Denies photophobia or blurry vision. Denies neck stiffness. States he has history of migraines and was taking Tylenol and ibuprofen which then triggered his gastritis. History of hiatal hernia. Pain is epigastric, burning, 5 out of 10, nonradiating. No other aggravating relieving factors. Denies any other associated symptoms Allergies: Coded Allergies: DIPHENHYDRAMINE (Verified Allergy, Unknown, 04/10/19) METOCLOPRAMIDE (Verified Allergy, Unknown, 04/10/19) PROCHLORPERAZINE (Unverified Allergy, Unknown, 04/10/19) Patient History Past Medical History: HTN, GERD - hiatal hernia, psych hx Past Surgical History: none Pertinent Family History: none Social History: Denies: smoking, alcohol use, drug use Immunizations: UTD Reviewed Nursing Documentation: PMH: Agreed; PSxH: Agreed Nursing Documentation-PMH Hx Hypertension: Yes Hx Gastrointestinal Problems: Yes - GERD Hx Neurological Problems: Yes - Generalized Anxiety D/O. Review of Systems All Other Systems: negative except mentioned in HPI Physical Exam Vital Signs Date Time Temp Pulse Resp B/P (MAP) Pulse Ox O2 Delivery O2 Flow Rate FiO2 04/10/19 19:47 98.4 104 20 153/94 (113) 97 Room Air Sp02 EP Interpretation: reviewed, normal General Appearance: no apparent distress, alert, GCS 15, non-toxic Head: normocephalic Eyes: bilateral eye normal inspection, bilateral eye PERRL ENT: hearing grossly normal, normal pharynx, no angioedema, normal voice Neck: full range of motion, supple, no meningismus, supple/symm/no masses Respiratory: chest non-tender, lungs clear, normal breath sounds, speaking full sentences Cardiovascular #1: regular rate, rhythm, no edema Gastrointestinal: normal bowel sounds, soft, non-distended, no guarding, no rebound, tenderness - epigastric Rectal: deferred Genitourinary: no CVA tenderness Musculoskeletal: normal inspection Neurologic: alert, oriented x3, responsive, motor strength/tone normal, sensory intact, speech normal Psychiatric: normal inspection Skin: no rash Lymphatic: normal inspection Medical Decision Making Diagnostic Impression: Primary Impression: Headache Qualified Codes: R51 - Headache Additional Impressions: Gastritis Qualified Codes: K29.00 - Acute gastritis without bleeding Hiatal hernia ER Course Hospital Course 28 old male presents to ED complaining of headache and epigastric pain. History of migraines and hiatal hernia differential diagnosis: gastritis, SBO, cholecystits Clinical course Patient placed on stretcher. On centrifuge separator tender. After initial history physical exam reveals male in no acute distress. No nuchal rigidity. Cranial nerves II through XII grossly intact. No visual acuity changes. There is some mild epigastric tenderness. No guarding or rebound. discussed findings with the patient. He is declining labs and IV medications. Agrees to GI cocktail and Pepcid. States he will manage the headache at home as it is already improving. Safe for discharge for close outpatient follow-up. States he has a PMD I feel this is a highly complex case requiring extensive working including EKG/ Rhythm strip, Xray/CT/US, Blood/urine lab work, repeat exams while in ED, and administration of strong opiates/narcotics for pain control, admission to hospital or close patient follow up. Diagnosis - gastritis, headache, hiatal hernia Stable and discharged to home with prescriptions for Zantac. Followup with PMD. Return to ED if symptoms recur or worsen Last Vital Signs Date Time Temp Pulse Resp B/P (MAP) Pulse Ox O2 Delivery O2 Flow Rate FiO2 04/10/19 20:30 97.5 89 18 145/108 98 Room Air Disposition: HOME, SELF-CARE Condition: Stable Scripts Ranitidine Hcl* (ZANTAC*) 150 Mg Tablet 150 MG ORAL TWICE A DAY, #30 TAB Prov: Kp Tucker MD 04/10/19 Patient Instructions: Indigestion, [id number] Kp Tucker MD Apr 13, 2019 14:25
== END 2019-04-10 20:30 | disposition home or self-care (01) ==
LOC: EMR 20:20
DX: R51 Headache (principal); K29.00 Acute gastritis without bleeding; K44.9 Diaphragmatic hernia without obstruction or gangrene; K21.9 Gastro-esophageal reflux disease without esophagitis; I10 Essential (primary) hypertension; F41.1 Generalized anxiety disorder; Z88.8 Allergy status to other drugs, medicaments and biological substances
CPT/HCPCS: 99282

== ENCOUNTER 2019-07-10 15:25 | Emergency (ER) | payer OTHER ==
[~2019-07-10] VITALS: Ht 180.3 cm; Wt 104.3 kg
[~2019-07-10 15:25] MED LIST changes: +RANITIDINE HCL150 MG ORAL
[2019-07-10 16:32] VITALS: BP 132/88
--- NOTE | 2019-07-10 17:02 | Emergency Room Report ---
History of Present Illness General Chief Complaint: Pain Source: Patient Present Illness HPI 28-year-old male with history of a 5 cm hiatal hernia recently checked by lamp shade maker x3 months here complaining of worsening epigastric pain now radiating to chest. Patient reports that he has been modifying his diet and eating no spicy or acidic food however had carbonated soda yesterday and immediately started feeling pain of the affected site. Complains of burning sensation coming up to his throat however denies pain radiation to the left arm as well as palpitation. Denies diarrhea and constipation. Denies nausea vomiting. Reports that he is on a daily dose of 40 mg of pantoprazole given by primary care and lamp shade maker. Patient had endoscopy done 3 months ago and was told that the hiatal hernia is 5 cm and needs dietary modification. The hiatal hernia is palpable upon physical examination. Denies diffuse abdominal pain, flatulence, fever and chills, urinary symptoms, and no other associated symptoms. Patient is rating the burning sensation/pain 3 out of 10 with radiation to throat, worsening when laying down and sitting up right. Does admit to smoking marijuana however denies tobacco smoke and alcohol intake. Allergies: Coded Allergies: DIPHENHYDRAMINE (Verified Allergy, Unknown, 04/10/19) METOCLOPRAMIDE (Verified Allergy, Unknown, 04/10/19) PROCHLORPERAZINE (Unverified Allergy, Unknown, 04/10/19) Patient History Past Medical History: see triage record Past Surgical History: unable to obtain Pertinent Family History: none Immunizations: UTD Reviewed Nursing Documentation: PMH: Agreed; PSxH: Agreed Nursing Documentation-PM Past Medical History: No History, Except For Hx Hypertension: Yes Hx Gastrointestinal Problems: Yes - GERD Hx Neurological Problems: Yes - Generalized Anxiety D/O. Review of Systems All Other Systems: negative except mentioned in HPI Physical Exam Vital Signs Date Time Temp Pulse Resp B/P (MAP) Pulse Ox O2 Delivery O2 Flow Rate FiO2 07/10/19 15:28 99.0 97 20 143/88 (106) 97 Room Air Sp02 EP Interpretation: reviewed, normal General Appearance: no apparent distress, alert, GCS 15, non-toxic Head: normocephalic, atraumatic Eyes: bilateral eye normal inspection, bilateral eye PERRL ENT: hearing grossly normal, normal pharynx, no angioedema, normal voice Neck: full range of motion, supple, supple/symm/no masses Respiratory: chest non-tender, lungs clear, normal breath sounds, no rhonchi, no respiratory distress, no retraction, no wheezing, speaking full sentences Cardiovascular #1: regular rate, rhythm, no edema, no murmur, normal capillary refill Gastrointestinal: normal bowel sounds, non tender, no organomegaly, no peritonitis, no bruit, non-distended, no guarding, no pulsatile mass, no rebound , hernia - hiatal hernia Rectal: deferred Genitourinary: no CVA tenderness Musculoskeletal: back normal, gait/station normal, normal range of motion, non- tender Neurologic: alert, oriented x3, responsive, motor strength/tone normal, sensory intact, speech normal Psychiatric: judgement/insight normal, memory normal, mood/affect normal, no suicidal/homicidal ideation Skin: no rash Lymphatic: no adenopathy Medical Decision Making PA Attestation All diagnoses and treatment plans were reviewed and discussed with my supervising physician Dr. Shine Diagnostic Impression: Primary Impression: Hiatal hernia Additional Impression: Gastritis ER Course 28-year-old male with history of a 5 cm hiatal hernia recently checked by lamp shade maker x3 months here complaining of worsening epigastric pain now radiating to chest. Patient reports that he has been modifying his diet and eating no spicy or acidic food however had carbonated soda yesterday and immediately started feeling pain of the affected site. Complains of burning sensation coming up to his throat however denies pain radiation to the left arm as well as palpitation. Denies diarrhea and constipation. Denies nausea vomiting. Reports that he is on a daily dose of 40 mg of pantoprazole given by primary care and lamp shade maker. Patient had endoscopy done 3 months ago and was told that the hiatal hernia is 5 cm and needs dietary modification. The hiatal hernia is palpable upon physical examination. Denies diffuse abdominal pain, flatulence, fever and chills, urinary symptoms, and no other associated symptoms. Patient is rating the burning sensation/pain 3 out of 10 with radiation to throat, worsening when laying down and sitting up right. Does admit to smoking marijuana however denies tobacco smoke and alcohol intake. Ddx considered but are not limited to: Hiatal hernia, gastritis, PR Vital signs: are WNL, pt. is afebrile H&PE are most consistent with: Chronic hiatal hernia, gastritis ORDERS: EKG, chest x-ray, pantoprazole 40 mg twice a day for 10 days ED INTERVENTIONS: NS bolus, Pepcid, Zofran DISCHARGE: At this time pt. is stable for d/c to home. Will provide printed patient care instructions, and any necessary prescriptions. Care plan and follow up instructions have been discussed with the patient prior to discharge. Patient to follow-up with a lamp shade maker in regards to the hiatal hernia , possible referral to child care center assistant director for modification of your diet and avoid eating anything carbonated and spicy. Avoid smoking marijuana. At this time your heart is in no distress. Patient reported feeling better after administration of medication. EKG Diagnostic Results Rate: normal Rhythm: NSR ST Segments: no acute changes Other Impression No acute ST changes Chest X-Ray Diagnostic Results Chest X-Ray Diagnostic Results : Chest X-Ray Ordered: Yes # of Views/Limited/Complete: 1 View Indication: Other - Radiating chest pain starting in epigastric area EP Interpretation: Yes PA Xray: Interpretation reviewed, by supervising MD, and agrees with findings. Interpretation: no consolidation, no effusion, no pneumothorax Impression: No acute disease Electronically Signed by: Preston Lee PA-C Last Vital Signs Date Time Temp Pulse Resp B/P (MAP) Pulse Ox O2 Delivery O2 Flow Rate FiO2 07/10/19 15:28 99.0 97 20 143/88 (106) 97 Room Air Disposition: HOME, SELF-CARE Condition: Stable Scripts Pantoprazole* (PANTOPRAZOLE*) 40 Mg Tablet. 40 MG ORAL BID, #20 TAB Prov: Preston Moody 07/10/19 Patient Instructions: Gastritis, Adult, [id number], Hiatal Hernia Additional Instructions: Follow-up with your primary care provider for referral to gastroenterology for evaluation of your hernia he also need nutritional consult carbonated, acidic, spicy, and avoid smoking marijuana. If worsening symptoms return to emergency room. Preston Moody Jul 10, 2019 17:02
[2019-07-10] MEDS ORDERED: PANTOPRAZOLE SO40 MG ORAL (17:18)
[2019-07-10 17:30] VITALS: BP 126/68
--- NOTE | 2019-07-11 11:29 | Diagnostic Imaging Report ---
Indication: Chest pain Technique: One view of the chest Comparison: 12/30/2018 Findings: Lungs and pleural spaces are clear. Heart size is normal. There is no significant interim change Impression: No acute process
--- NOTE | 2019-07-11 11:30 | Diagnostic Imaging Report ---
Indication: Abdominal pain Technique: Supine view of the abdomen Comparison: none Findings: Bowel gas pattern is unremarkable. No unusual masses or calcifications. Impression: No acute process
--- NOTE | 2019-07-13 08:31 | Cardiology Report ---
APPROVED REPORT EKG Measurement Heart [id number] Normal sinus rhythm Normal ECG
== END 2019-07-10 17:30 | disposition home or self-care (01) ==
LOC: EMR 15:59
DX: K44.9 Diaphragmatic hernia without obstruction or gangrene (principal); K29.70 Gastritis, unspecified, without bleeding; Z88.8 Allergy status to other drugs, medicaments and biological substances; I10 Essential (primary) hypertension; K21.9 Gastro-esophageal reflux disease without esophagitis
CPT/HCPCS: 71045; 74018; 93005; 96361; 96374; 96375; 99284; J2405; J7030; S0028

== ENCOUNTER 2019-10-28 11:49 | Emergency (ER) | payer OTHER ==
[~2019-10-28] VITALS: Ht 180.3 cm; Wt 104.3 kg
[~2019-10-28 11:49] MED LIST changes: +LIDOCAINE VISC100 ML ORAL; +OMEPRAZOLE20 M3 ORAL
[2019-10-28 12:28] VITALS: BP 157/95
[2019-10-28] MEDS ORDERED: Omnipaque-300 100ml vial INJ PRN (12:30)
[2019-10-28] MEDS ORDERED: Ketorolac 30mg Inj IV ONE (12:30)
--- NOTE | 2019-10-28 12:31 | NUR ---
ED Nurse Note: Patient walked in to ER from home due to LLQ pain 12/01 x 4 days with N/V. pt aao x4 and ambulatory. skin clean and intact. calm and cooperative. no cardiac or pulmonary distress noted at this moment. pt is in gown and on test specialist. no vomiting at this time.
--- NOTE | 2019-10-28 12:39 | Emergency Room Report ---
History of Present Illness General Chief Complaint: Abdominal Pain Source: Patient (Hugo Maldonado M.D.) Present Illness HPI 29-year-old male presents with left lower quadrant abdominal pain. Symptoms present for the past 4 days. Constant pressure-like nonradiating. Associated with occasional loose stool. He reports nausea and feelings of fever. He has a history of a hiatal hernia. No abdominal surgical history. Currently 8 out of 10. (Hugo Maldonado M.D.) Allergies: Coded Allergies: DIPHENHYDRAMINE (Verified Allergy, Unknown, 04/10/19) METOCLOPRAMIDE (Verified Allergy, Unknown, 04/10/19) PROCHLORPERAZINE (Unverified Allergy, Unknown, 04/10/19) Patient History Past Medical History: see triage record Reviewed Nursing Documentation: PMH: Agreed; PSxH: Agreed (Hugo Maldonado M.D.) Nursing Documentation-PMH Past Medical History: No History, Except For Hx Hypertension: Yes Hx Gastrointestinal Problems: Yes - GERD Hx Neurological Problems: Yes - Generalized Anxiety D/O. (Hugo Maldonado M.D.) Review of Systems All Other Systems: negative except mentioned in HPI (Hugo Maldonado M.D.) Physical Exam Vital Signs Date Time Temp Pulse Resp B/P (MAP) Pulse Ox O2 Delivery O2 Flow Rate FiO2 10/28/19 11:52 98.1 78 18 157/95 (115) 97 Room Air Sp02 EP Interpretation: reviewed, normal General Appearance: well appearing, no apparent distress Head: normocephalic, atraumatic Eyes: bilateral eye PERRL, bilateral eye EOMI ENT: hearing grossly normal, moist mucus membranes Neck: full range of motion, supple Respiratory: lungs clear, normal breath sounds, no rhonchi, no respiratory distress, no retraction, no wheezing Cardiovascular #1: normal peripheral pulses, regular rate, rhythm, no murmur Gastrointestinal: soft, non-distended, no guarding, other - Left lower quadrant tenderness to palpation Neurologic: alert, oriented x3, no focal defects Skin: normal color, warm/dry (Hugo Maldonado M.D.) Medical Decision Making Diagnostic Impression: Primary Impression: Abdominal pain Qualified Codes: R10.32 - Left lower quadrant pain ER Course Differential diagnosis included but not limited to diverticulitis, colitis, gastroenteritis to name a few. Patient was tender on exam so CT scan was ordered. Laboratory studies were sent IV fluids given. (Hugo Maldonado M.D.) ER Course Please see above note. Patient signed out to me for CT scan. Patient has been treated with Zofran and Toradol. He rates the pain a 5/10 at this time. Patient examined. Left lower quadrant tenderness without guarding or rebound. CT with possible thickening of terminal ileum. Specific mention no diverticulitis. This is not where the patient's pain is. Discussed results with patient. With leukocytosis plan to treat with antibiotics. Discussed the need for follow-up with patient. Patient stable for outpatient observation and treatment. Laboratory Tests Test 10/28/19 12:40 White Blood Count 10.4 K/UL (4.8-10.8) Red Blood Count 5.40 M/UL (4.70-6.10) Hemoglobin 17.1 G/DL (14.2-18.0) Hematocrit 49.6 % (42.0-52.0) Mean Corpuscular Volume 92 FL (80-99) Mean Corpuscular Hemoglobin 31.7 PG (27.0-31.0) H Mean Corpuscular Hemoglobin Concent 34.5 G/DL (32.0-36.0) Red Cell Distribution Width 11.7 % (11.6-14.8) Platelet Count 330 K/UL (150-450) Mean Platelet Volume 7.2 FL (6.5-10.1) Neutrophils (%) (Auto) 56.8 % (45.0-75.0) Lymphocytes (%) (Auto) 31.7 % (20.0-45.0) Monocytes (%) (Auto) 5.4 % (1.0-10.0) Eosinophils (%) (Auto) 4.1 % (0.0-3.0) H Basophils (%) (Auto) 1.9 % (0.0-2.0) Urine Color Pale yellow Urine Appearance Clear Urine pH 7 (4.5-8.0) Urine Specific [place] 1.005 (1.005-1.035) Urine Protein Negative (NEGATIVE) Urine Glucose (UA) Negative (NEGATIVE) Urine Ketones Negative (NEGATIVE) Urine Blood Negative (NEGATIVE) Urine Nitrite Negative (NEGATIVE) Urine Bilirubin Negative (NEGATIVE) Urine Urobilinogen Normal MG/DL (0.0-1.0) Urine Leukocyte Esterase Negative (NEGATIVE) Sodium Level 143 MMOL/L (136-145) Potassium Level 3.9 MMOL/L (3.5-5.1) Chloride Level 104 MMOL/L (98-107) Carbon Dioxide Level 30 MMOL/L (21-32) Anion Gap 9 mmol/L (5-15) Blood Urea Nitrogen 10 mg/dL (7-18) Creatinine 1.0 MG/DL (0.55-1.30) Estimate Glomerular Filtration Rate > 60 mL/min (>60) Glucose Level 93 MG/DL (74-106) Calcium Level 9.2 MG/DL (8.5-10.1) Total Bilirubin 0.3 MG/DL (0.2-1.0) Aspartate Amino Transferase (AST) 32 U/L (15-37) Alanine Aminotransferase (ALT) 71 U/L (12-78) Alkaline Phosphatase 77 U/L (46-116) Total Protein 7.8 G/DL (6.4-8.2) Albumin 4.2 G/DL (3.4-5.0) Globulin 3.6 g/dL Albumin/Globulin Ratio 1.2 (1.0-2.7) Lipase 165 U/L (73-393) (Taqeuria Grullon MD) CT/MRI/US Diagnostic Results CT/MRI/US Diagnostic Results : Imaging Test Ordered: abd/pelvis Impression Impression: Limited assessment of the GI tract, due to lack of enteric contrast administration Very questionable mild wall thickening of the distal ileum, if real could indicate enteritis, nonspecific as regards etiology Colonic diverticulosis. No evidence of diverticulitis Subcentimeter low-attenuation renal lesions, too small to characterize, most likely benign simple cysts (Taqueria Grullon MD) Last Vital Signs Date Time Temp Pulse Resp B/P (MAP) Pulse Ox O2 Delivery O2 Flow Rate FiO2 10/28/19 12:28 98.1 79 18 157/95 97 Room Air (Hugo Maldonado M.D.) Last Vital Signs Date Time Temp Pulse Resp B/P (MAP) Pulse Ox O2 Delivery O2 Flow Rate FiO2 10/28/19 16:14 98.1 80 16 145/89 99 Room Air Status: improved (Taqueria Grullon MD) Disposition: HOME, SELF-CARE Condition: Improved Scripts Ciprofloxacin Hcl* (CIPROFLOXACIN HCL*) 500 Mg Tablet 500 MG ORAL Q12H, #10 TAB 0 Refills Prov: Taqueria Grullon MD 10/28/19 Acetaminophen (Tylenol) 325 Mg Tablet 650 MG ORAL Q6H PRN for Prn Pain/Headache/Temp > 101, #20 TAB 0 Refills Prov: Taqueria Grullon MD 10/28/19 Tramadol Hcl* (ULTRAM*) 50 Mg Tablet 50 MG ORAL Q6H PRN for For Pain, #6 TAB 0 Refills Prov: Taqueria Grullon MD 10/28/19 Hugo Maldonado M.D. Oct 28, 2019 12:39 Taqueria Grullon MD Oct 28, 2019 15:58
[2019-10-28 13:17] LABS: APPEARANCE,URINE CLEAR; BILIRUBIN, URINE NEGATIVE (NEGATIVE); COLOR,URINE PALE YELLOW; GLUCOSE, URINE (UA) NEGATIVE (NEGATIVE); KETONES,URINE NEGATIVE (NEGATIVE); LEUKOCYTE ESTERASE ,URINE NEGATIVE (NEGATIVE); NITRITE,URINE NEGATIVE (NEGATIVE); PH,URINE 7 (4.5-8.0); PROTEIN,URINE NEGATIVE (NEGATIVE); UROBILINOGEN,URINE NORMAL MG/DL (0.0-1.0)
[2019-10-28 13:24] LABS: BASOPHILS % (AUTO) 1.9 % (0.0-2.0); EOSINOPHILS % (AUTO) 4.1 % (0.0-3.0); HEMATOCRIT 49.6 % (42.0-52.0); HEMOGLOBIN 17.1 G/DL (14.2-18.0); LYMPHOCYTES % (AUTO) 31.7 % (20.0-45.0); MEAN CORPUSCULAR VOLUME 92 FL (80-99); MONOCYTES % (AUTO) 5.4 % (1.0-10.0); NEUTROPHILS % (AUTO) 56.8 % (45.0-75.0); PLATELET COUNT 330 K/UL (150-450); RED CELL DISTRIBUTION WIDTH 11.7 % (11.6-14.8); WHITE BLOOD COUNT 10.4 K/UL (4.8-10.8)
[2019-10-28 13:43] LABS: ANION GAP 9 mmol/L (5-15); BLOOD UREA NITROGEN 10 mg/dL (7-18); CALCIUM 9.2 MG/DL (8.5-10.1); CARBON DIOXIDE 30 MMOL/L (21-32); CHLORIDE 104 MMOL/L (98-107); POTASSIUM 3.9 MMOL/L (3.5-5.1); SODIUM 143 MMOL/L (136-145)
[2019-10-28 13:49] LABS: ALANINE AMINOTRANSFERASE 71 U/L (12-78); ALBUMIN 4.2 G/DL (3.4-5.0); ALBUMIN/GLOBULIN RATIO 1.2 (1.0-2.7); ALKALINE PHOSPHATASE 77 U/L (46-116); ASPARTATE AMINO TRANSFERASE 32 U/L (15-37); BILIRUBIN,TOTAL 0.3 MG/DL (0.2-1.0)
--- NOTE | 2019-10-28 13:58 | NUR ---
ED Nurse Note: pt taken to CT scan in stable condition.
--- NOTE | 2019-10-28 14:18 | NUR ---
ED Nurse Note: pt back from CT scan in stable condition.
--- NOTE | 2019-10-28 15:01 | Diagnostic Imaging Report ---
Clinical Indication: 8 out of 10 abdominal pain Technique: No oral contrast utilized, per emergency room physician request IV administration nonionic contrast. Venous phase spiral acquisition obtained through the abdomen and pelvis. Multiplanar reconstructions were generated. Total dose length product 898 mGycm. CTDIvol(s) 16 mGy. Dose reduction achieved using automated exposure control Comparison: none Findings: The lack of IV contrast limits assessment of the GI tract. There are distal colonic diverticula. No evidence of diverticulitis. The appendix is normal. There is equivocal mild wall thickening of the terminal ileum. The remainder of the small bowel is grossly unremarkable in appearance. No free or loculated intraperitoneal gas or fluid is evident. Distal esophagus, stomach, duodenum are unremarkable. The liver demonstrate a subcentimeter low-attenuation lesion in segment 5. The gallbladder, bile ducts, pancreas, spleen, adrenals are unremarkable. The kidneys demonstrate subcentimeter low-attenuation lesions which are too small to characterize. No renal or ureteral calculi, hydronephrosis, or hydroureter. No pelvic mass or adenopathy. Normal size prostate. The bones are unremarkable. The included lung bases are clear. Impression: Limited assessment of the GI tract, due to lack of enteric contrast administration Very questionable mild wall thickening of the distal ileum, if real could indicate enteritis, nonspecific as regards etiology Colonic diverticulosis. No evidence of diverticulitis Subcentimeter low-attenuation renal lesions, too small to characterize, most likely benign simple cysts The CT scanner at [facility] is accredited by the [employer] and the scans are performed using protocols designed to limit radiation exposure to as low as reasonably achievable to attain images of sufficient resolution adequate for diagnostic evaluation.
--- NOTE | 2019-10-28 15:44 | NUR ---
ED Nurse Note: pt asked for CT result. ERMD made aware.
--- NOTE | 2019-10-28 15:48 | NUR ---
ED Nurse Note: ERMD at bedside explaining CT scan results.
[2019-10-28] MEDS ORDERED: CIPROFLOXACIN500 M2 ORAL (16:01)
[2019-10-28] MEDS ORDERED: TYLENOL325 MG ORAL (16:01)
[2019-10-28] MEDS ORDERED: TRAMADOL HCL50 MG ORAL (16:01)
[2019-10-28 16:14] VITALS: BP 145/89
--- NOTE | 2019-10-28 16:29 | NUR ---
ED Nurse Note: Pt cleared by health care Provider for discharge. DC instructions/prescription was given and explained to pt and verbalized understanding of teachings. All medical deviecs such as ID band removed. Pt is AAO x4, ambulatory and left with all personal belongings.
== END 2019-10-28 16:14 | disposition home or self-care (01) ==
LOC: EMR 13:45
DX: R10.32 Left lower quadrant pain (principal); I10 Essential (primary) hypertension; K21.9 Gastro-esophageal reflux disease without esophagitis; F41.9 Anxiety disorder, unspecified; K57.30 Diverticulosis of large intestine without perforation or abscess without bleeding; Z88.8 Allergy status to other drugs, medicaments and biological substances
CPT/HCPCS: 36415; 74177; 80053; 81003; 83690; 85025; 96374; 96375; J1885; J2405; J7040; Q9967; Z7502; 99284

== ENCOUNTER → 2020-10-22 | Emergency (ER) | payer MEDICAID ==
[~2020-10-22] MED LIST changes: +CIPROFLOXACIN500 M2 ORAL; +TRAMADOL HCL50 MG ORAL; +TYLENOL325 MG ORAL; +ZOFRAN4 M1 ORAL
--- NOTE | 2020-10-22 21:12 | Emergency Room Report ---
History of Present Illness General Chief Complaint: To Be Triaged Present Illness HPI Patient left without being seen. I had no interaction with this patient. Allergies: Coded Allergies: DIPHENHYDRAMINE (Verified Allergy, Unknown, 04/10/19) METOCLOPRAMIDE (Verified Allergy, Unknown, 04/10/19) PROCHLORPERAZINE (Unverified Allergy, Unknown, 04/10/19) COVID-19 Screening Contact w/high risk pt: No Experienced COVID-19 symptoms?: No Nursing Documentation-PMH Hx Hypertension: Yes Hx Gastrointestinal Problems: Yes - GERD Hx Neurological Problems: Yes - Generalized Anxiety D/O. Medical Decision Making ER Course Patient left without being seen. I had no interaction with this patient. Disposition: LEFT W/OUT BEING SEEN Condition: Unknown Raymundo Shine MD Oct 22, 2020 21:12
== END | disposition left against medical advice (07) ==
LOC: EMR 17:30
DX: Z53.21 Procedure and treatment not carried out due to patient leaving prior to being seen by health care provider (principal)

== ENCOUNTER 2020-10-28 12:10 | Emergency (ER) | payer MEDICAID ==
[~2020-10-28] VITALS: Ht 180.3 cm; Wt 111.1 kg
--- NOTE | 2020-10-28 12:57 | Emergency Room Report ---
History of Present Illness General Chief Complaint: Abdominal Pain Source: Patient Present Illness HPI Patient is a 30-year-old male past medical history of hiatal hernia who presents to the ER complaining of abdominal pain. Patient states that this is a chronic issue but complains of worsening pain in the epigastric region over the past month. He states that he wakes up with an acid feeling in his throat and chest and vomits. Patient states that the pain has been getting progressively worse. He states that he is already on Protonix at home. He complains of flank pain which she attributes to vomiting. He denies any fever or chills. She denies any shortness of breath or chest pain. He just complains of a burning sensation from his epigastric region that goes up into his throat. He states that his doctor sent a referral to a surgeon for hiatal hernia repair and are awaiting insurance approval. Allergies: Coded Allergies: DIPHENHYDRAMINE (Verified Allergy, Unknown, 04/10/19) METOCLOPRAMIDE (Verified Allergy, Unknown, 04/10/19) PROCHLORPERAZINE (Unverified Allergy, Unknown, 04/10/19) COVID-19 Screening Contact w/high risk pt: No Experienced COVID-19 symptoms?: No COVID-19 Testing performed SUPERVISOR COFFEE: No Patient History Reviewed Nursing Documentation: PMH: Agreed; PSxH: Agreed Nursing Documentation-PMH Hx Hypertension: Yes Hx Gastrointestinal Problems: Yes - GERD Hx Neurological Problems: Yes - Generalized Anxiety D/O. Review of Systems All Other Systems: negative except mentioned in HPI Physical Exam Vital Signs Date Time Temp Pulse Resp B/P (MAP) Pulse Ox O2 Delivery O2 Flow Rate FiO2 10/28/20 12:48 98.1 84 18 140/80 (100) 98 Room Air Sp02 EP Interpretation: reviewed, normal General Appearance: no apparent distress, alert, GCS 15, non-toxic Head: normocephalic, atraumatic Eyes: bilateral eye normal inspection, bilateral eye PERRL ENT: hearing grossly normal, normal pharynx, no angioedema, normal voice Neck: full range of motion, supple/symm/no masses Respiratory: chest non-tender, lungs clear, normal breath sounds, speaking full sentences Cardiovascular #1: regular rate, rhythm, no edema Gastrointestinal: no guarding, no rebound, other - Epigastric tenderness to palpation Rectal: deferred Genitourinary: no CVA tenderness Musculoskeletal: normal range of motion 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 Patient's vital signs are stable. Patient CT abdomen pelvis demonstrates no acute intra-abdominal pathology. Patient pending labs and urinalysis. Patient signed out to Dr. Maldonado pending ER studies, reevaluation and final disposition at 1400. Laboratory Tests Test 10/28/20 12:45 10/28/20 12:50 Urine Color Pending Urine Appearance Pending Urine pH Pending Urine Specific [place] Pending Urine Protein Pending Urine Glucose (UA) Pending Urine Ketones Pending Urine Blood Pending Urine Nitrite Pending Urine Bilirubin Pending Urine Urobilinogen Pending Urine Leukocyte Esterase Pending Urine Opiates Screen Pending Urine Barbiturates Screen Pending Phencyclidine (PCP) Screen Pending Urine Amphetamines Screen Pending Urine Benzodiazepines Screen Pending Urine Cocaine Screen Pending Urine Marijuana (THC) Screen Pending White Blood Count Pending Red Blood Count Pending Hemoglobin Pending Hematocrit Pending Mean Corpuscular Volume Pending Mean Corpuscular Hemoglobin Pending Mean Corpuscular Hemoglobin Concent Pending Red Cell Distribution Width Pending Platelet Count Pending Mean Platelet Volume Pending Neutrophils (%) (Auto) Pending Lymphocytes (%) (Auto) Pending Monocytes (%) (Auto) Pending Eosinophils (%) (Auto) Pending Basophils (%) (Auto) Pending Sodium Level Pending Potassium Level Pending Chloride Level Pending Carbon Dioxide Level Pending Blood Urea Nitrogen Pending Creatinine Pending Estimated Glomerular Filtration Rate Pending Glucose Level Pending Calcium Level Pending Magnesium Level Pending Total Bilirubin Pending Aspartate Amino Transferase (AST) Pending Alanine Aminotransferase (ALT) Pending Alkaline Phosphatase Pending Total Protein Pending Albumin Pending Globulin Pending Lipase Pending Last Vital Signs Date Time Temp Pulse Resp B/P (MAP) Pulse Ox O2 Delivery O2 Flow Rate FiO2 10/28/20 12:48 98.1 84 18 140/80 (100) 98 Room Air Condition: Unknown Signed Out To: at 1400 Referrals: [facility],REFERRING (PCP) Additional Instructions: Please note that this report is being documented using DRAGON technology. This can lead to erroneous entry secondary to incorrect interpretation by the dictating instrument. Cheryl Lopez M.D. Oct 28, 2020 12:56
[2020-10-28] MEDS ORDERED: fentaNYL 100 mcg/2 mL IV ONE (13:00)
[2020-10-28] MEDS ORDERED: Dicyclomine HCl 10mg/5ml oral soln ORAL ONE (13:00)
[2020-10-28] MEDS ORDERED: Pantoprazole Inj IVP ONE (13:00)
[2020-10-28 13:27] VITALS: BP 140/80
--- NOTE | 2020-10-28 13:40 | Diagnostic Imaging Report ---
EXAM: XR Chest, 1 View CLINICAL HISTORY: PAIN TECHNIQUE: Frontal view of the chest. COMPARISON: No relevant prior studies available. FINDINGS: Lungs: Accentuation of bronchovascular markings. No confluent consolidation. Pleural space: Unremarkable. No pneumothorax. Heart: Unremarkable. Mediastinum: Unremarkable. Bones/joints: No acute fracture. IMPRESSION: Accentuation of bronchovascular markings. No confluent consolidation.
--- NOTE | 2020-10-28 13:54 | Diagnostic Imaging Report ---
EXAM: CT Abdomen and Pelvis Without Intravenous Contrast CLINICAL HISTORY: PAIN TECHNIQUE: Axial computed tomography images of the abdomen and pelvis without intravenous contrast. CTDI is 13.4 mGy and DLP is 855.1 mGy-cm. One or more of the following dose reduction techniques were used: automated exposure control, adjustment of the mA and/or kV according to patient size, use of iterative reconstruction technique. COMPARISON: No relevant prior studies available. FINDINGS: Mediastinum: Small hiatal hernia. ABDOMEN: Liver: Unremarkable Gallbladder and bile ducts: No calcified stones. No ductal dilation. Pancreas: Unremarkable. Spleen: Unremarkable. Adrenals: Unremarkable. Kidneys and ureters: No renal calculi or obstructive changes. Stomach and bowel: No ashley mural thickening. Nonobstructive bowel gas pattern. PELVIS: Appendix: Unremarkable appendix. Bladder: Unremarkable. Reproductive: Unremarkable. ABDOMEN and PELVIS: Intraperitoneal space: Unremarkable. Bones/joints: No acute fracture. Soft tissues: Unremarkable. Vasculature: Unremarkable. No abdominal aortic aneurysm. Lymph nodes: No enlarged lymph nodes. IMPRESSION: Unremarkable appendix.
[2020-10-28 14:00] LABS: APPEARANCE,URINE SLIGHTLY CLOUDY; BILIRUBIN, URINE NEGATIVE (NEGATIVE); GLUCOSE, URINE (UA) NEGATIVE (NEGATIVE); KETONES,URINE NEGATIVE (NEGATIVE); LEUKOCYTE ESTERASE ,URINE NEGATIVE (NEGATIVE); NITRITE,URINE NEGATIVE (NEGATIVE); PH,URINE 7 (4.5-8.0); PROTEIN,URINE NEGATIVE (NEGATIVE); UROBILINOGEN,URINE NORMAL MG/DL (0.0-1.0)
[2020-10-28 14:01] LABS: BASOPHILS % (AUTO) 1.3 % (0.0-2.0); EOSINOPHILS % (AUTO) 2.5 % (0.0-3.0); HEMATOCRIT 53.1 % (42.0-52.0); HEMOGLOBIN 17.9 G/DL (14.2-18.0); LYMPHOCYTES % (AUTO) 18.5 % (20.0-45.0); MEAN CORPUSCULAR VOLUME 92 FL (80-99); MONOCYTES % (AUTO) 4.7 % (1.0-10.0); PLATELET COUNT 331 K/UL (150-450); RED BLOOD COUNT 5.77 M/UL (4.70-6.10); RED CELL DISTRIBUTION WIDTH 12.2 % (11.6-14.8); WHITE BLOOD COUNT 12.6 K/UL (4.8-10.8)
[2020-10-28 14:02] LABS: ANION GAP 10 mmol/L (5-15); BLOOD UREA NITROGEN 10 mg/dL (7-18); CALCIUM 9.4 MG/DL (8.5-10.1); CARBON DIOXIDE 27 MMOL/L (21-32); CHLORIDE 106 MMOL/L (98-107); CREATININE 1.3 MG/DL (0.55-1.30); POTASSIUM 3.9 MMOL/L (3.5-5.1); SODIUM 143 MMOL/L (136-145)
[2020-10-28 14:05] LABS: COLOR,URINE YELLOW
[2020-10-28 14:06] LABS: ALANINE AMINOTRANSFERASE 54 U/L (12-78); ALBUMIN 4.6 G/DL (3.4-5.0); ALBUMIN/GLOBULIN RATIO 1.3 (1.0-2.7); ALKALINE PHOSPHATASE 82 U/L (46-116); ASPARTATE AMINO TRANSFERASE 23 U/L (15-37); BILIRUBIN,TOTAL 0.6 MG/DL (0.2-1.0)
[2020-10-28] MEDS ORDERED: ONDANSETRON ODT4 MG BC (14:27)
== END 2020-10-28 14:42 | disposition home or self-care (01) ==
LOC: EMR 12:49
DX: K44.9 Diaphragmatic hernia without obstruction or gangrene (principal); R10.9 Unspecified abdominal pain; Z88.8 Allergy status to other drugs, medicaments and biological substances; K21.9 Gastro-esophageal reflux disease without esophagitis; I10 Essential (primary) hypertension; F41.1 Generalized anxiety disorder; D72.829 Elevated white blood cell count, unspecified
CPT/HCPCS: 36415; 71045; 74176; 80053; 80307; 81003; 83690; 83735; 85025; 96361; 96374; 96375; J2405; J3010; J7030; S0164; Z7502; 99284